=== PATIENT | male | born 1995 | race American Indian/Alaskan Native ===

== ENCOUNTER 2023-09-09 12:53 | Outpatient (AMB) | payer SELFPAY ==
--- NOTE | 2023-09-09 13:06 | AM.OFFWIN_ITS ---
Intake Vital Signs 3 09/09/23 13:09 Height 5 ft 10 in Weight 187 lb BMI 26.8 BP 100/62 Blood Pressure Location Lt brachial Position Sitting Pulse 99 Pulse Source Pulse Oximeter Temp 98.3 F Temp Source Oral Pulse Oximetry (%) 97 Oxygen Delivery Method Room Air Intake Visit Reasons: EP chest pain ER ppwrk in hand Intake Note: Pt is here today to get a second opinion for his chest pain [place] [facility] [place] No Known Allergies Allergy (Verified 09/09/23 13:11) Medication List - Last Reconciled 09/09/23 by Dayanna Yi, SCHOOL PSYCHOMETRIST-BC cyclobenzaprine 10 mg PO BID naproxen 500 mg PO BID HPI HPI Comments 2 History of Present Illness0 Details 27-year-old male here today for complain ts of left chest wall pain, numbness and tingling of his left arm. He was evaluated by [facility] Emergency room about 1 week ago for similar symptoms. He reports the workup was negative and he was discharged home with naproxen and cyclobenzaprine. This medication was helping some. However the symptoms continued. He did go to [facility] on and he was admitted and discharged home on Monday. I have had some of the paperwork from the [facility] admission printed for me to review. Labs, EKG, chest x-ray within normal limits. The no indicate that a CT scan of the brain was done. I do not have the results but the patient reports this was normal. He was discharged home with an order for an MRI of the brain and neck. He has not scheduled this yet. He will call on Monday. When I asked him about more details, he reports that prior to the onset he did feel a pop in his left chest wall. He was smoking marijuana at that time and wondered if the pop was real or just part of a trip. However the next day he had pain in the left chest wall. He admits that with use of his arm and chest the pain is worse, the left chest become swollen, and occasionally has pins and needle sensation in the left arm. Does not lose function or strength in his left arm. States that when he wakes up 1st thing in the morning and overnight while he is sleeping he has no pain and no tingling. It is only after he goes about his day and uses his arm and chest. He denies fever, chills, hemoptysis. His extensive workup has ruled out any life-threatening causes. Review of Systems Const All systems reviewed & are unremarkable except as noted in HPI and below Physical Exam Vital Signs: Last Vital Signs Temp 98.3 F 09/09/23 13:09 Pulse 99 09/09/23 13:09 BP 100/62 09/09/23 13:09 Pulse Ox 97 09/09/23 13:09 Oxygen Delivery Method Room Air 09/09/23 13:09 BMI result Body Mass Index 26.8 Chest Other: Awake alert oriented, no acute distress Regular rate and rhythm Lung sounds clear to auscultation bilat Chest/axillae images: 2 1. Reproducible pain with palpation. No chest wall deformity. Overlying skin is intact and clear. The left arm is neurovascularly intact. Assessment & Plan Assessment & Plan (1) Hospital discharge follow-up: Code(s): Z09 - Encounter for follow-up examination after completed treatment for conditions other than malignant neoplasm (2) Strain of left pectoralis muscle: Code(s): S29.011A - Strain of muscle and tendon of front wall of thorax, initial encounter Qualifiers: Encounter type: initial encounter Qualified Code(s): S29.011A - Strain of muscle and tendon of front wall of thorax, initial encounter (3) Paresthesia of left arm: Code(s): R20.2 - Paresthesia of skin Plan: . Plan . This note is constructed using voice recognition software. While every effort has been made to ensure accuracy in ship construction teacher, still errors may have been included Sometimes, these errors may affect the content or meaning of the given sentence . Total time spent caring for the patient today was 60 minutes. This includes time spent before the visit reviewing the chart, time spent during the visit, and time spent after the visit on documentation Orders: Referrals 2 Orthopedics Referral S29.011A - Strain of muscle and tendon of front wall of thorax, initial encounter Medications: New 2 cyclobenzaprine 10 mg PO BID PRN 20 tabs 0RF muscle spasm naproxen 500 mg PO BID PRN 30 tabs 0RF pain Patient Instructions: Explained to him today that the cause of his pain could be related to some sort of injury to the left pectoral muscle. I have placed a referral to orthopedics for further evaluation and treatment. I have advised him to get the MRI of the brain and neck done as ordered by [facility]. He should continue to take naproxen and Flexeril. I have refilled both of these for him. He also needs to establish care with a primary care provider. I have sent a message to the [facility] group in [place] to see if they work with his insurance if they can schedule him an appointment. Was made aware that if [facility] in [place] does not accept his insurance that he should contact his insurance company directly to see who they work with for primary care. Coding Level of Care Code Est Pt Level 5 (16530) Diagnoses Hospital discharge follow-up Z09 Strain of left pectoralis muscle, initial encounter S29.011A Encounter type: initial encounter Paresthesia of left arm R20.2
[2023-09-09 13:09] VITALS: BP 100/62; PULSE 99; TEMP 36.8; O2SAT 97; BMI 26.8
== END 2023-09-09 13:42 | disposition home or self-care (01) ==
PROVIDERS: Visit Provider Nurse Practitioner Family
DX: S29.011A Strain of muscle and tendon of front wall of thorax, initial encounter (principal); R20.2 Paresthesia of skin; Z09 Encounter for follow-up examination after completed treatment for conditions other than malignant neoplasm
CPT/HCPCS: 99051; 99215

== ENCOUNTER 2023-09-22 09:55 | Outpatient (AMB) | payer OTHER, SELFPAY ==
--- NOTE | 2023-09-22 10:18 | MHC.PC.OV ---
Vital Signs 09/22/23 10:25 Height 5 ft 8.5 in Weight 184 lb BMI 27.6 BP 118/78 Blood Pressure Location Lt brachial Position Sitting Respiration 14 Pulse 93 Pulse Source Pulse Oximeter Temp 98.4 F Temp Source Oral Pulse Oximetry (%) 99 Oxygen Delivery Method Room Air Intake Visit Reasons: Establish Care Intake Note: New patient visit. Chest pain, states its muscular. Light headed and off balance when walking. Allergies No Known Allergies Allergy (Verified 09/22/23 10:46) Medication List - Last Reconciled 09/22/23 [facility] No Known Home Meds Tobacco use date assessed: 09/22/23 Dental Screening Dental Screen Date: 09/22/23 Did you have a dental visit in the last 12 months?: No Did you have a dental problem in the last 6 months where you did not have access to dental care?: No Was dental information given to patient?: Yes HPI HPI Comments History of Present Illness Details Here today to [facility] care I did see him for 12/02/2023 at the walk-in clinic. Since last visit he cont to have the chest wall pain, on the left side Unfortunately he did also go to the emergency room 2 times since this visit. He reports the 1st time he was treated for dehydration and sent home and the 2nd time he went in after feeling like he was going to faint dropped to his knees at work. He reports that he was admitted during this time for 24 hours and was seen by a neurologist and a air defense specialist. He reports that an MRI was done. In the workup was negative. Reports that he is going to have an echocardiogram done next week. I do not have any of these records however they have been requested. He states all of his meds were discontinued as they wondered if the muscle relaxer the NSAIDs were contributing any part to his story. the pain in left chest wall, limited to a certain area. when he goes to do physical activity feels his heart racing. NSAID help this. He continues to say that all of the symptoms started after feeling a popping sensation in his left pectoral muscle after being physically active. Feels head mckinley when changing positions, feels he is hydrating well. At night, body is shaking on the inside, poor sleep. Admits some level of anxiety which is new for him. 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 1. Little interest or pleasure in doing things: not at all 2. Feeling down, depressed, or hopeless: not at all 3. Trouble falling or staying asleep, or sleeping too much: not at all 4. Feeling tired or having little energy: not at all 5. Poor appetite or overeating: not at all 6. Feeling bad about yourself - or that you are a failure or have let yourself or your family down: not at all 7. Trouble concentrating on things, such as reading the newspaper or watching television: not at all 8. Moving or speaking so slowly that other people could have noticed. Or the opposite - being so fidgety or restless that you have been moving around a lot more than usual: not at all 9. Thoughts that you would be better off or of hurting yourself in some way: not at all Total score: 0 Depression Screening Interpretation: Negative Depression Screening Done: Yes 93312 - PHQ-9 Billing: Yes Source: Developed by Drs. Carlos Baum, Nohemy Montalvo, Hal Savage and colleagues, with an educational alden from [employer]. Thrive Questionnaire Date Thrive assessed: 09/22/23 I am a: Patient What is your living situation today?: I have a steady place to live Within the past 12 months, did the food you bought not last and you didn't have the money to get more?: Never true Within the past 12 months, did you worry whether your food would run out before you got money to buy more?: Never true Do you have trouble paying for medicines?: No Do you have trouble getting transportation to medical appointments?: No Do you have trouble paying your heating and electricity bill?: No Do you have trouble taking care of your child, family member or friend?: No Do you have trouble with day-to-day activities such as bathing, preparing meals, shopping, managing finances, etc.?: No Are you currently unemployed and looking for a job?: No Are you interested in more education?: No Please select the resources that you would like help with: None Currently or been in a relationship where the following occur: no concerns reported and I choose not to answer this question THRIVE Score: 0 AUDIT C Alcohol Use Questionnaire (AUDIT-C) 1. How often do you have a drink containing alcohol?: 2-3 times a week 2. How many drinks containing alcohol do you have on a typical day when you are drinking?: 3 or 4 3. How often do you have six or more drinks on one occasion?: Never Total Score: 4 Score Reviewed/Action Taken: Yes SARAH-7 AMB Questionnaire SARAH-7 Date SARAH - 7 assessed: 09/22/23 Feeling nervous, anxious, or on edge: 0 = Not at all Not being able to stop or control worryin = Not at all Worrying too much about different things: 1 = Several days Trouble relaxin = Several days Being so restless that it is hard to sit still: 0 = Not at all Becoming easily annoyed or irritable: 0 = Not at all Feeling afraid as if something awful might happen: 1 = Several days Total SARAH-7 score (0-4 normal; 5-9 mild; 10-14 moderate; 15-21 severe): 3 Source: Developed by Drs. Carlos Baum, Nohemy Montalvo, Hal Savage and colleagues, with an educational alden from [employer]. SARAH-7 Assessment Billing SARAH-7 Assessment Tool: SARAH-7 Assessment 56367 Review of Systems Const All systems reviewed & are unremarkable except as noted in HPI and below Physical exam (Primary Care) Vital Signs: Last Vital Signs Temp 98.4 F 09/22/23 10:25 Pulse 93 09/22/23 10:25 Resp 14 09/22/23 10:25 BP 118/78 09/22/23 10:25 Pulse Ox 99 09/22/23 10:25 Oxygen Delivery Method Room Air 09/22/23 10:25 BMI result Body Mass Index 27.6 Tobacco/Smoking Status: Tobacco use Status Tobacco use date assessed 09/22/23 09/22/23 10:28 Patient Tobacco Use Status Never used Tobacco 09/22/23 10:28 e-Cigarette/Vaping Use Currently Using 09/22/23 10:28 PHQ-9: PHQ-9 Score PHQ-9: Total score 0 09/22/23 10:28 Depression Screening Interpretation: Negative Currently or been in a relationship where the following occur: no concerns reported and I choose not to answer this question Const Other: Awake alert oriented, no acute distress Regular rate and rhythm Lung sounds clear to auscultation bilat Chest/axillae images: 1. Reproducible pain with palpation. No chest wall deformity. Overlying skin is intact and clear. The left arm is neurovascularly intact. Assessment and Plan Assessment & Plan (1) Hospital discharge follow-up: Code(s): Z09 - Encounter for follow-up examination after completed treatment for conditions other than malignant neoplasm (2) Strain of left pectoralis muscle: Code(s): S29.011A - Strain of muscle and tendon of front wall of thorax, initial encounter Qualifiers: Encounter type: initial encounter Qualified Code(s): S29.011A - Strain of muscle and tendon of front wall of thorax, initial encounter Plan Ongoing symptomology of which extensive testing has been done at [facility] with life-threatening conditions ruled out. He has been seen by a air defense specialist as well as a neurologist. Be that as it may this certainly could be an anxiety response to what has been going on recently. The pain in his left pectoral muscle started after he felt a popping sensation when being physically active. I do think it would be prudent to send him to orthopedics for an evaluation. I will start him on Paxil 10 mg p.o. daily. Titrate to effect. P.r.n. hydroxyzine. Advised to use this. Advised against going to the emergency room for any further evaluations. I will review the documents from [facility] once available to me and bring him back for a close follow up in 2-3 weeks. This note is constructed using voice recognition software. While every effort has been made to ensure accuracy in outsole cementer machine, still errors may have been included Sometimes, these errors may affect the content or meaning of the given sentence . Total time spent caring for the patient today was 45 minutes. This includes time spent before the visit reviewing the chart, time spent during the visit, and time spent after the visit on documentation Orders: Referrals Orthopedics Referral S29.011A - Strain of muscle and tendon of front wall of thorax, initial encounter Medications: New paroxetine HCl 10 mg PO DAILY 30 tabs 1RF hydroxyzine HCl 50 mg PO BID PRN 60 tabs 0RF anxiety Patient Instructions: Return to office in 2-3 weeks to follow up, sooner as needed Coding Level of Care Code Est Pt Level 5 (90975) Diagnoses Hospital discharge follow-up Z09 Strain of left pectoralis muscle, initial encounter S29.011A Encounter type: initial encounter Additional Codes SARAH-7 Assessment Billing - SARAH-7 Assessment Tool: SARAH-7 Assessment 58123 ([id number])
[2023-09-22 10:25] VITALS: BP 118/78; PULSE 93; RESP 14; TEMP 36.9; O2SAT 99; BMI 27.6
== END 2023-09-22 11:06 | disposition home or self-care (01) ==
PROVIDERS: Visit Provider Nurse Practitioner Family
DX: S29.011A Strain of muscle and tendon of front wall of thorax, initial encounter (principal); Z09 Encounter for follow-up examination after completed treatment for conditions other than malignant neoplasm
CPT/HCPCS: 99215

== ENCOUNTER 2023-10-04 07:53 | Outpatient (AMB) | payer OTHER, SELFPAY ==
--- NOTE | 2023-10-04 07:55 | MHC.OFFVIS ---
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 The patient states that his symptoms have been getting worse over the last few months. He has failed 6 weeks of conservative treatment. 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 The patient states that most of the pain is along the anterior aspect of his shoulder. He does report weakness when lifting his left hand above shoulder height. He has done physical therapy exercises which aggravated his pain. He has also tried Tylenol and anti-inflammatory medicines which gave him minimal relief. 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) Cognitive needs: No Hearing needs: No Vision needs: No Physical Exam Vital Signs: BMI result Body Mass Index 28.0 Const Other: Well-nourished well-developed very friendly male awake alert and oriented x3 in no acute distress Extrem Other: Bilateral upper extremity examination shows good capillary refill, no skin lesions noted, normal sensation light touch Left shoulder examination shows full range of motion when compared to his right shoulder, 4+ out of 5 strength with supraspinatus testing, positive impingement sign, positive [place] test, mild tenderness over his acromioclavicular joint, no instability Results Reviewed Results Reviewed: X-rays of the patient's left shoulder show moderate acromioclavicular joint narrowing, a type 3 acromion, no acute bony abnormalities Assessment & Plan Assessment & Plan (1) Left shoulder pain: Code(s): M25.512 - Pain in left shoulder Category: Medical Plan Mr. Bolton presents with left shoulder pain and weakness due to impingement syndrome as well as possible rotator cuff tearing and possible labral tearing. Thus, I will send the patient for an MRI arthrogram of his left shoulder. I will see him back once the study is completed to discuss the findings and treatment options. Will continue with his activity modifications in the meantime. He will contact me prior to the MRI should his symptoms worsen in any way. I spent 20 minutes in reviewing the patient's records and imaging studies, seeing the patient and documenting in the medical record. Orders: Orders XR shoulder LT min 2V Today M25.512 - Pain in left shoulder MR shoulder LT wo con Today M25.512 - Pain in left shoulder FL arthrogram shoulder LT Today M25.512 - Pain in left shoulder Coding Level of Care Code New Pt Level 3 (07733) Diagnoses Left shoulder pain M25.512
[2023-10-04 07:56] VITALS: BMI 28.0
== END 2023-10-04 08:27 | disposition home or self-care (01) ==
PROVIDERS: Visit Provider Orthopaedic Surgery
DX: M25.512 Pain in left shoulder (principal)
CPT/HCPCS: 99203

== ENCOUNTER 2023-10-04 08:41 | Outpatient (REF) | payer OTHER, SELFPAY ==
--- NOTE | ~2023-10-04 | XR_ITS ---
EXAMINATION: XR SHOULDER, LEFT CLINICAL INFORMATION: Pain in left shoulder. COMPARISON: None available. TECHNIQUE: 2 views of the left shoulder. FINDINGS: Glenohumeral and acromioclavicular alignment is anatomic with normal joint space. At least 2 small 3-4 mm densities overlying the humeral head may represent bony sclerotic foci such as bone islands versus soft tissue calcifications. XR/XR shoulder LT min 2V IMPRESSION: At least 2 small 3-4 mm densities overlying the humeral head may represent bony sclerotic foci such as bone islands versus soft tissue calcifications.
== END 2023-10-04 08:42 | disposition home or self-care (01) ==
LOC: HO.HOSX 08:41
PROVIDERS: Visit Provider Orthopaedic Surgery
DX: M25.512 Pain in left shoulder (principal)
CPT/HCPCS: 73030

== ENCOUNTER 2023-10-18 08:28 | Outpatient (AMB) | payer OTHER, SELFPAY ==
--- NOTE | 2023-10-18 08:39 | A.OFFPC_ITS ---
Vital Signs 10/18/23 08:41 Height 5 ft 8 in Weight 185 lb BMI 28.1 BP 104/64 Blood Pressure Location Lt brachial Position Sitting Pulse 78 Pulse Source Auscultation Pulse Oximetry (%) 98 Oxygen Delivery Method Room Air Intake Visit Reasons: 2-3 weeks with me 30 min f/u chest pain Allergies No Known Allergies Allergy (Verified 10/18/23 08:45) Medication List - Last Reconciled 10/18/23 by JAN Modi No Known Home Meds Tobacco use date assessed: 09/22/23 Dental Screening Dental Screen Date: 09/22/23 HPI HPI Comments History of Present Illness Details Here today for fu: At previous visit: Ongoing symptomology of which extensive testing has been done at [facility] with life-threatening conditions ruled out. He has been seen by a pillowcase cutter as well as a neurologist. Be that as it may this certainly could be an anxiety response to what has been going on recently. The pain in his left pectoral muscle started after he felt a popping sensation when being physically active. I do think it would be prudent to send him to orthopedics for an evaluation. I will start him on Paxil 10 mg p.o. daily. Titrate to effect. P.r.n. hydroxyzine. Advised to use this. Advised against going to the emergency room for any further evaluations. I will review the documents from [facility] once available to me and bring him back for a close follow up in 2-3 weeks. Since last visit, had consult with [facility] Ortho. I was also able to review his [facility] Medical Records, images, labs. all WNL and reassuring. Ortho note indicates: Mr. Bolton presents with left shoulder pain and weakness due to impingement syndrome as well as possible rotator cuff tearing and possible labral tearing States today that: MRI scheduled 11/13/23 He worries about the right shoulder area as he is having some pain - wonders if overuse d/t left side being impaired. He has sent a portal message to [facility] ortho to inquire about this; in addition to request imaging of L pec as this is a source of some of his pain and did feel a pop in this area at the onset of this sx. Stopped taking paxil x 2 days and felt like he had a side effect so stopped. The Hydroxyzine caused a sense of feeling unbalanced and nausea so stopped but it did help w/ anxiety sx. His anxiety is much better now that he knows his heart is not the reason for his pain and that it is an Ortho cause. He has had no ED visits. No syncope or presyncope. He is managing with the pain for now. Offered and declined cortisone injection. Will get TDap today as unsure of last time he had one. 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 Carlos Baum, Nohemy Montalvo, Hal Savage and colleagues, with an educational alden from [employer]. Review of Systems Const All systems reviewed & are unremarkable except as noted in HPI and below Physical exam (Primary Care) Vital Signs: Last Vital Signs Pulse 78 10/18/23 08:41 BP 104/64 10/18/23 08:41 Pulse Ox 98 10/18/23 08:41 Oxygen Delivery Method Room Air 10/18/23 08:41 BMI result Body Mass Index 28.1 Tobacco/Smoking Status: Tobacco use Status Tobacco use date assessed 09/22/23 10/18/23 08:39 Patient Tobacco Use Status Never used Tobacco 10/18/23 08:39 e-Cigarette/Vaping Use Currently Using 10/18/23 08:39 Thrive Assessment: Date of Thrive Assessment Date Thrive assessed 09/22/23 10/18/23 08:39 Const Other: Awake alert oriented, no acute distress Regular rate and rhythm Lung sounds clear to auscultation bilat Chest/axillae images: Reproducible pain with palpation. No chest wall deformity. Overlying skin is intact and clear. The left arm is neurovascularly intact. Immunizations Boostrix Tdap 2.5 Lf unit-8 mcg-5 Lf/0.5 mL intramuscular syringe Performing Provider: JAN Modi Performing Location: [facility] Administered by: Charu Solitario CMA on 10/18/23 09:29 Dose Route Admin Location Dispensed Lot Number Expiration Date NDC Web Marketing Coordinator 0.5 mL IM Right Deltoid 0.5 mL [id number] 11/14/25 98663-451-81 [employer]LAXOSMITHK[employer] 0.5 mL IM Right Deltoid 0.5 mL [id number] 11/14/25 40228-804-07 [employer] VIS Given Date VIS Provided VIS Publication Date 10/18/23 Single Vaccine 20 Eligibility Eligibility Date Funding Source Not [facility] Eligible 10/18/23 Private Assessment and Plan Assessment & Plan (1) Left shoulder pain: Code(s): M25.512 - Pain in left shoulder Qualifiers: Chronicity: acute Qualified Code(s): M25.512 - Pain in left shoulder (2) Paresthesia of left arm: Code(s): R20.2 - Paresthesia of skin (3) SARAH (generalized anxiety disorder): Code(s): F41.1 - Generalized anxiety disorder Plan This note is constructed using voice recognition software. 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 Total time spent caring for the patient today was 45 minutes. This includes time spent before the visit reviewing the chart, time spent during the visit, and time spent after the visit on documentation Orders: Orders TDaP Immunization Today Z23 - Encounter for immunization Medications: New Boostrix Tdap (diphth,pertus(acell),tetanus) 0.5 mL IM ONCE 0.5 mL 0RF NS Z23 - Encounter for immunization Patient Instructions: Plan: MRI 11/13/23, left shoulder being managed by Ortho. Will likely need surgery. This is likely the cause for his pain. RTO for pre-op clearance, sooner as needed. STOP paxil and hydroxyzine as these caused side effects & your anxiety is improved knowing the cause of your pain is your shoulder FU with ortho about R shoulder Tdap admin today Reassured Cards work up was Normal. Coding Level of Care Code Est Pt Level 5 (71250) Diagnoses Acute pain of left shoulder M25.512 Chronicity: acute Paresthesia of left arm R20.2 SARAH (generalized anxiety disorder) F41.1
[2023-10-18 08:41] VITALS: BP 104/64; PULSE 78; O2SAT 98; BMI 28.1
== END 2023-10-18 09:00 | disposition home or self-care (01) ==
PROVIDERS: Visit Provider Nurse Practitioner Family
DX: M25.512 Pain in left shoulder (principal); R20.2 Paresthesia of skin; F41.1 Generalized anxiety disorder; Z23 Encounter for immunization
CPT/HCPCS: 90471; 90715; 99215

== ENCOUNTER 2023-11-13 12:47 | Outpatient (REF) | payer OTHER, SELFPAY ==
--- NOTE | ~2023-11-13 | MR_ITS ---
EXAMINATION: MR SHOULDER WITH CONTRAST, LEFT CLINICAL INFORMATION: Shoulder pain. Possible labral tear. COMPARISON: X-ray 10/04/2023 TECHNIQUE: MRI of the shoulder was performed following the intra-articular administration of a dilute gadolinium-containing solution (arthrogram) on a high-field scanner. FINDINGS: ROTATOR CUFF: Mild supraspinatus tendinosis. Mild articular surface fraying anteriorly. Infraspinatus, teres minor, subscapularis is intact. No muscle atrophy or fatty infiltration. BICEPS: Intact CORACOACROMIAL ARCH: The undersurface of the acromion is curved with no subacromial spur. Minimal acromioclavicular arthritis. LABRUM/CAPSULE: No definite labral tear is seen. GLENOHUMERAL JOINT/MARROW: No evidence of acute fracture. No aggressive marrow replacing lesion. 3 small low T1/T2 signal foci in the humeral head, likely bone islands. This correlates with the sclerotic foci seen on the x-ray. MR/MR shoulder LT w con IMPRESSION: 1. Mild supraspinatus tendinosis. Mild articular surface fraying anteriorly. 2. No definite labral tear is seen.
--- NOTE | ~2023-11-13 | FL_ITS ---
LEFT SHOULDER ARTHROGRAM FOR MRI INDICATIONS: Left shoulder pain. Intra-articular gadolinium injection is needed prior to MRI. PROCEDURE: Risks and benefits and possible complications were discussed with the patient and the consent form was signed. The patient was placed supine on the fluoroscopy table. The left shoulder was prepped and draped in normal sterile fashion. 1% buffered lidocaine was used for anesthesia. A 22 gauge spinal needle was used to access the shoulder joint. Intra-articular position of the needle within the shoulder joint was verified using 3 cc of Omnipaque 300. A total of 10 mL of gadolinium/saline (1:200) contrast mixture was then injected into the shoulder joint. The needle was then removed and a Band-Aid was applied to the injection site. The patient tolerated the procedure well and was sent to MRI. There were no immediate complications. FL/FL arthrogram shoulder LT IMPRESSION: Successful fluoroscopic guided intra-articular instillation of dilute gadolinium into the left shoulder joint. Patient will undergo subsequent left shoulder MRI. The procedure was performed by kevin Dukes PA-C, and directly supervised by Dr. Ann.
[2023-11-13] MEDS: gadobutroL 2 ML VIAL IVPUSH (14:04)
== END 2023-11-13 12:48 | disposition home or self-care (01) ==
LOC: HO.XRAY 12:47
PROVIDERS: PCP Nurse Practitioner Family; Visit Provider Orthopaedic Surgery
DX: M25.512 Pain in left shoulder (principal)
CPT/HCPCS: 23350; 73040; 73222; A9585

== ENCOUNTER → 2023-11-13 12:49 | Outpatient (BNV) | payer OTHER, SELFPAY | PROVIDERS: PCP Nurse Practitioner Family; Visit Provider Physician Assistant Surgical | DX: M25.512 Pain in left shoulder (principal) | CPT/HCPCS: 23350; 73040 ==

== ENCOUNTER 2023-11-30 14:40 | Outpatient (AMB) | payer OTHER, SELFPAY ==
--- NOTE | 2023-11-30 14:45 | MHC.OFFVIS ---
Vital Signs 11/30/23 14:46 Height 5 ft 8 in Weight 189 lb BMI 28.7 Handedness Right Intake Visit Reasons: OV-Left shoulder MRI review Intake Note: Paul is a 27 year old right hand dominant male who presents with complaints of progressively worsening left shoulder pain. He describes his pain as sharp and severe in nature. Most of the pain is along the lateral and superior aspects of his shoulder. He denies any weakness. Has taken Tylenol and anti-inflammatory medicines which gave him minimal relief. He has done physical therapy exercises which aggravated his pain. 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) Cognitive needs: No Hearing needs: No Vision needs: No Physical Exam Vital Signs: BMI result Body Mass Index 28.7 Const Other: Well-nourished well-developed very friendly male awake alert and oriented x3 in no acute distress Extrem Other: Bilateral upper extremity examination shows good capillary refill, no skin lesions noted, normal sensation light touch Left shoulder examination shows full range of motion when compared to his right shoulder, 5/5 strength with supraspinatus testing, positive impingement signs, tenderness over his acromioclavicular joint, no instability Results Reviewed Results Reviewed: MRI of the patient's left shoulder show severe acromioclavicular joint narrowing, a type 3 acromion, signal change within the supraspinatus tendon due to rotator cuff tendinosis versus partial-thickness tearing Assessment & Plan Assessment & Plan (1) Impingement syndrome of left shoulder: Code(s): M75.42 - Impingement syndrome of left shoulder Category: Medical Plan Mr. Bolton presents with left shoulder pain due to impingement syndrome and acromioclavicular joint arthritis. I had a lengthy discussion with the patient regarding the treatment options. At this point he appears to be failing continued non operative treatments. The risks and benefits of left shoulder arthroscopic surgery were discussed at length with the patient. The patient is thinking about undergoing surgery later this year. He will contact my office to pick a surgery date when he chooses to do so. Surgery will involve left shoulder diagnostic arthroscopy with distal clavicle excision and acromioplasty. He will continue with his activity modifications in the meantime. Feel free to call me at any time should questions regarding his orthopedic management arise. I spent 21 minutes in reviewing the patient's records and imaging studies, seeing the patient and documenting in the medical record. Coding Level of Care Code Est Pt Level 3 (06805) Diagnoses Impingement syndrome of left shoulder M75.42
[2023-11-30 14:46] VITALS: BMI 28.7
== END 2023-11-30 15:15 | disposition home or self-care (01) ==
PROVIDERS: PCP Nurse Practitioner Family; Visit Provider Orthopaedic Surgery
DX: M75.42 Impingement syndrome of left shoulder (principal)
CPT/HCPCS: 99213

== ENCOUNTER → 2023-11-30 14:40 | Outpatient (BNVA) | payer OTHER, SELFPAY | PROVIDERS: PCP Nurse Practitioner Family; Visit Provider Orthopaedic Surgery ==

== ENCOUNTER 2024-01-10 10:52 | Outpatient (AMB) | payer OTHER, SELFPAY ==
[2024-01-10 10:54] VITALS: BMI 28.7
--- NOTE | 2024-01-10 10:54 | MHC.OFFVIS ---
Vital Signs 01/10/24 10:54 Height 5 ft 8 in Weight 189 lb BMI 28.7 Intake Visit Reasons: Left shoulder pain Intake Note: Paul is a 27 year old Right hand dominant male who presents with left progressively worsening left shoulder pain. The patient states that his symptoms have been getting worse over the last few months. He has failed 6 weeks of conservative treatment. 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 The patient states that most of the pain is along the anterior aspect of his shoulder. He does report weakness when lifting his left hand above shoulder height. He has done physical therapy exercises which aggravated his pain. He has also tried Tylenol and anti-inflammatory medicines which gave him minimal relief. 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) Cognitive needs: No Hearing needs: No Vision needs: No Physical Exam Vital Signs: BMI result Body Mass Index 28.7 Const Other: Well-nourished well-developed very friendly male awake alert and oriented x3 in no acute distress Extrem Other: Bilateral upper extremity examination shows good capillary refill, no skin lesions noted, normal sensation light touch Left shoulder examination shows slightly decreased range of motion when compared to his right shoulder, 4+ out of 5 strength with supraspinatus testing, positive impingement signs, tenderness over his acromioclavicular joint, no instability Results Reviewed Results Reviewed: MRI of the patient's left shoulder show severe acromioclavicular joint narrowing, a type 3 acromion, signal change within the supraspinatus tendon most likely due to rotator cuff tendinosis Assessment & Plan Assessment & Plan (1) Left shoulder pain: Code(s): M25.512 - Pain in left shoulder Category: Medical Qualifiers: Chronicity: acute Qualified Code(s): M25.512 - Pain in left shoulder Plan Mr. Bolton presents with progressively worsening left shoulder pain due to impingement syndrome and acromioclavicular joint arthritis. I had a lengthy discussion with the patient regarding the treatment options. At this point he has failed continued non operative treatments. The risks and benefits of left shoulder surgery were discussed at length with the patient. The patient wishes to proceed with surgery. Surgery will most likely involve left shoulder diagnostic arthroscopy with arthroscopic distal clavicle excision and arthroscopic acromioplasty. The patient was given a prescription for oxycodone at his preoperative appointment. Will follow-up as instructed. Feel free to call me at any time should questions regarding his orthopedic management arise. I spent 20 minutes in reviewing the patient's records and imaging studies, seeing the patient and documenting in the medical record. Medications: New oxycodone Partial Fill upon patient request. Take 1-2 tabs every 4 hours as needed for pain following your left shoulder surgery 10 mg (2 x 5 mg) PO Q4H 1 week PRN 40 tabs 0RF pain Coding Level of Care Code Est Pt Level 3 (65220) Diagnoses Acute pain of left shoulder M25.512 Chronicity: acute
== END 2024-01-10 11:11 | disposition home or self-care (01) ==
PROVIDERS: PCP Nurse Practitioner Family; Visit Provider Orthopaedic Surgery
DX: M75.42 Impingement syndrome of left shoulder (principal); M19.012 Primary osteoarthritis, left shoulder
CPT/HCPCS: 99213

== ENCOUNTER → 2024-01-10 10:52 | Outpatient (BNVA) | payer OTHER, SELFPAY | PROVIDERS: PCP Nurse Practitioner Family; Visit Provider Orthopaedic Surgery ==

== ENCOUNTER 2024-01-12 08:26 | Day surgery (SDC) | payer OTHER, SELFPAY ==
[2024-01-10 09:30] VITALS: BMI 28.7
--- NOTE | 2024-01-10 13:22 | P.CONAN_ITS ---
Documented by User: Anita Park NP 01/10/24 13:22 HPI - Anesthesia Eval Consult details Narrative: 28yo M for Left Shoulder Arthroscopy distal clavicle excision and acromioplasty PMFSH Active Problems Active Problems: All Active Problems Impingement syndrome of left shoulder (Acute) SARAH (generalized anxiety disorder) (Acute) Left shoulder pain (Acute) Hospital discharge follow-up (Acute) Paresthesia of left arm (Acute) Strain of left pectoralis muscle (Acute) Social History Social History Housing: House Patient Tobacco Use Status: Never used Tobacco e-Cigarette/Vaping Use: Currently Using Second Hand Smoke Exposure: No Advance Directives: No Advance Directives Information Provided: Yes service: No Current occupational status: employed Current occupation: [employer] , 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) Cognitive needs: No Hearing needs: No Vision needs: No Meds Allergies Allergy/AdvReac Type Severity Reaction Status Date / Time No Known Allergies Allergy Verified 01/10/24 10:54 Active Medications: Current Medications Cefazolin Sodium/Dextrose (Ancef) 2 gm in 50 mls @ 100 mls/hr IV PREOP ONE Stop: 01/12/24 06:16 Exam Height,Weight and Vital Signs: Height 5 ft 8 in Weight 85.729 kg Assessment and Plan Assessment Anesthesia Assessment: Chart Reviewed Documented by User: Linda Allen MD 01/12/24 09:59 PMFSH Family History Family history of problems with anesthesia: No Surgical History History of Problems with Anesthesia: No Social History Social History Housing: House Patient Tobacco Use Status: Never used Tobacco e-Cigarette/Vaping Use: Currently Using Second Hand Smoke Exposure: No Advance Directives: No Advance Directives Information Provided: Yes service: No Current occupational status: employed Current occupation: [employer] , 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 Discussed (e cig, vapes) Final Anesthetic Review Family History of Problems with Anesthesia: No History of Problems with Anesthesia: No NPO: Yes ASA Class: II Final Preanesthetic Review: No Changes in Pt Med Stat, Meds/Allgs Chart Reviewed, Consent Obtained/Reviewed and Anes Risks/Benef Reviewed Patient Risk: Low Procedure Risk: Intermediate Anesthetic Plan Anesthetic Plan: GA, Regional Block and Agree w/ Assess. and Plan Disposition: Standard PACU
[2024-01-12] VITALS (8 sets, daily range): BP systolic 109–132; BP diastolic 63–78; PULSE 78–90; RESP 12–20; TEMP 36.1–36.7; O2SAT 94–97; BMI 29.5
[2024-01-12] MEDS: Lactated Ringers 1,000 ML 100 ML IVCONT (10:31)
--- NOTE | 2024-01-12 14:38 | P.BOP_ITS ---
Brief Operative Note Date of Service: 01/12/24 Pre-op diagnosis: Left shoulder impingement syndrome, left shoulder acromioclavicular joint arthritis Post-op diagnosis: other (Same as preoperative diagnoses as well as left shoulder adhesive capsulitis) Procedure: Left shoulder diagnostic arthroscopy with left shoulder arthroscopic distal clavicle excision, left shoulder arthroscopic acromioplasty, left shoulder arthroscopic anterior capsular release, left shoulder manipulation under anesthesia Implants: none Surgeon: Tomi Narayanan MD Anesthesia: GETA and regional Was an Mechanical Equipment Sales Engineer used for this Procedure?: No Estimated blood loss (mL): 15 Pathology: none sent Condition: stable Disposition: PACU
--- NOTE | 2024-01-12 14:39 | W.PM.OPN ---
Operative Note Operative Note Date of Service: 01/12/24 Narrative: After the patient was identified as Paul Bolton and his left shoulder was initialed by myself the patient was brought to the holding area where a left shoulder interscalene regional block was performed by the anesthesiologist in routine fashion. The patient was then brought to the operating room where general anesthesia was induced by the anesthesiologist in routine fashion. The patient was given 2 g of IV Ancef preoperatively for infection prophylaxis. Examination under anesthesia of the patient's left shoulder showed decreased range of motion when compared to the right shoulder. The patient's left shoulder had forward flexion to 140 degrees compared to 170 degrees, external rotation to 40 degrees compared to 60 degrees, and internal rotation to 50 degrees compared to 60 degrees. The patient was gently positioned in the beach chair position with all bony prominences well padded. The patient's left shoulder region and upper extremity were prepped and draped in sterile fashion. A formal time-out was completed. A #11 scalpel blade was used to make a posterior portal 2 cm inferior and 1 cm medial to the posterolateral corner of the acromion. Blunt trocar technique was used to enter the glenohumeral joint in routine fashion. An anterior portal was made just lateral to the coracoid process after proper positioning was confirmed using a spinal needle. Diagnostic arthroscopy showed minimal degenerative changes of the glenoid and humeral head articular surfaces. There was no evidence of rotator cuff tearing. There was no evidence of injury to the biceps tendon or its insertion onto the glenoid. There was inflammation of the anterior joint capsule consistent with adhesive capsulitis. The ArthroCare Wand was then used to perform an anterior capsular release between the inferior border of the biceps tendon and the superior border of the subscapularis tendon. The arthroscope was then placed from the posterior portal into the subacromial space. A lateral portal was made 2 fingerbreadths lateral to the anterior lateral corner of the acromion. The ArthroCare Wand was used to ablate soft tissues along the undersurface of the acromion as well as to excise the coracoacromial ligament. There was a sharp spur along the undersurface of the acromion which was removed using the hooded bur. The arthroscope was then placed into the lateral portal and the acromioplasty was completed with the bur in the posterior portal using the posterior aspect of the acromion as a cutting block. The ArthroCare Wand was then brought in through the anterior portal and was used to ablate soft tissues along the acromioclavicular joint and distal clavicle. The posterior and superior ligamentous structures were left intact. A distal clavicle excision of 8 mm was performed using the hooded bur. Any remaining bursal tissue was removed using the arthroscopic shaver. The subacromial space was irrigated and then drained. All arthroscopic instruments were removed. A gentle manipulation under anesthesia was then performed. Full passive range of motion was easily attained. The 3 portals were closed with 3-0 nylon interrupted suture. The subacromial space was injected with Marcaine. Dry sterile dressing was placed over all incisions. The patient's left upper extremity was placed into a sling. The patient was awoken and extubated in the operating room. The patient was transferred to the recovery room in stable condition.
[2024-01-12] MEDS: cefTRIAXone sodium 1 GM in 0.9 % Sodium Chloride 50 ML IV (15:18)
== END 2024-01-12 16:11 | disposition home or self-care (01) ==
PROVIDERS: PCP Nurse Practitioner Family; Visit Provider Orthopaedic Surgery
PROC: (CPT 29805; principal; 2024-01-12 12:00)
DX: M75.42 Impingement syndrome of left shoulder (principal); M75.02 Adhesive capsulitis of left shoulder; M19.012 Primary osteoarthritis, left shoulder; F17.290 Nicotine dependence, other tobacco product, uncomplicated
CPT/HCPCS: 29824; 29825; 29826; J0131; J0171; J0665; J0690; J0696; J1100; J2250; J2405; J2704; J2795; J3010

== ENCOUNTER → 2024-01-12 08:26 | Outpatient (BNV) | payer OTHER, SELFPAY | PROVIDERS: PCP Nurse Practitioner Family; Visit Provider Orthopaedic Surgery | DX: M75.42 Impingement syndrome of left shoulder (principal); M19.012 Primary osteoarthritis, left shoulder | CPT/HCPCS: 29824; 29826 ==

== ENCOUNTER 2024-01-25 08:23 | Outpatient (AMB) | payer OTHER, SELFPAY ==
--- NOTE | 2024-01-25 08:24 | MHC.OFFVIS ---
Intake Visit Reasons: PO-Lt Shld 01/12/24 Intake Note: Paul is a 28 year old male who presents to the office today for a post op left shoulder 01/12/24. Pt states he is overall feeling well. He states if he moves his arm a certain way it its painful but overall the pain has been getting better. Pt states he has also been working on ROM exercises. Sutures removed in office today. He is no longer taking narcotics for his pain. 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 Bolton is doing well after undergoing left shoulder arthroscopic surgery on 01/12/2024. His sutures were removed and Steri-Strips placed over his incisions. He will gradually progress to activities as tolerated. He does not wish to go to formal physical therapy. He will contact me prior to his follow-up appointment in 4-6 weeks should any questions or concerns arise. Feel free to call me at any time should questions regarding his orthopedic management arise. Coding Level of Care Code Global (48579) Diagnoses Acute pain of left shoulder M25.512 Chronicity: acute
== END 2024-01-25 08:54 | disposition home or self-care (01) ==
PROVIDERS: PCP Nurse Practitioner Family; Visit Provider Orthopaedic Surgery
DX: M25.512 Pain in left shoulder (principal)
CPT/HCPCS: 99024

== ENCOUNTER → 2024-01-25 08:23 | Outpatient (BNVA) | payer OTHER, SELFPAY | PROVIDERS: PCP Nurse Practitioner Family; Visit Provider Orthopaedic Surgery ==

== ENCOUNTER 2024-02-09 11:28 | Outpatient (AMB) | payer OTHER, SELFPAY ==
--- NOTE | 2024-02-09 11:29 | A.OFFPC_ITS ---
Vital Signs 02/09/24 11:32 Height 5 ft 10 in Weight 191 lb 6 oz BMI 27.5 BP 118/70 Blood Pressure Location Lt brachial Position Sitting Respiration 14 Pulse 78 Pulse Source Pulse Oximeter Temp 97.8 F Temp Source Oral Pulse Oximetry (%) 98 Oxygen Delivery Method Room Air Intake Visit Reasons: random pain going down his legs Intake Note: follow up and patient still feeling tingling on his left leg Allergies No Known Allergies Allergy (Verified 02/09/24 11:32) Medication List - Last Reconciled 02/09/24 [facility] No Known Home Meds Tobacco use date assessed: 09/22/23 Dental Screening Dental Screen Date: 09/22/23 HPI HPI Comments History of Present Illness Details 28-year-old male s/p L shoulder 4 Here today c/o Left leg falling asleep and tingling on the left side of his neck. He reports that the symptoms in his left leg has been present for several months. He describes the sensation as when you are body part is waking up after falling asleep, tingling like. The symptoms are intermittent and occur throughout the day randomly. In regards to the left side of his neck, he reports that this started after his last surgery. It starts at the base of his cervical spine and radiates up the side behind his ear and then up towards his yarsanism. Reports that it feels like there is something wrong with his nerves. 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 His head always feels heavy. He has had extensive workup in the past to include a brain MRI, multiple cardiac workups all which were nonrevealing and done to evaluate other phlebotomy complaints. He denies any injury, fever, chills, loss of function. Exam Awake alert oriented, no acute distress PERRLA, EOMI, no photophobia Neck has full range of motion in all directions,left lateral flextion causes a pulsing muscle sensation on the left side of his neck. No nucchal rigidity. Not able to reproduce his sx. No c spine tenderness. No paraspinal tenderness. LLE normal tone. C/o tingling when zainab his calf muscle. No edema. CMS WNL No mastoid pain No temporal artery pain WHITE x 4,neurovasc intact, normal reflexes, tone, strength. Plan: Discussed the findings and plan with him today. Offered to start with nerve conduction study of his left upper and lower extremity. However unsure if the left upper extremity NCV we will give us any clinically significant findings, as the pain he describes radiates up into his neck and not into his left arm. Discuss referral to Neurology for evaluation and treatment versus MRI of the C- spine and lumbar spine and referral to the relationship specialist if there are any positive findings. Made aware that the insurance may or may not approve these imaging orders. The patient wishes to proceed. States that he is willing to pay [id number] for imaging if need be. I have advised for him to talk to the staff about this. Send me a portal message once imaging is scheduled. If the imaging can not be done, refer to neurology. In the meantime he wonders if he can see chiropractic medicine as he feels like overall his back and muscles are tight and he would benefit from this. I have placed a referral to [facility] and [facility] This note is constructed using voice recognition software. While every effort has been made to ensure accuracy in business performance manager, still errors may have been included Sometimes, these errors may affect the content or meaning of the given sentence . Total time spent caring for the patient today was 30 minutes. 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 Carlos Baum, Nohemy Montalvo, Hal Savage and colleagues, with an educational alden from [employer]. Physical exam (Primary Care) Vital Signs: Last Vital Signs Temp 97.8 F 02/09/24 11:32 Pulse 78 02/09/24 11:32 Resp 14 02/09/24 11:32 BP 118/70 02/09/24 11:32 Pulse Ox 98 02/09/24 11:32 Oxygen Delivery Method Room Air 02/09/24 11:32 BMI result Body Mass Index 27.5 Tobacco/Smoking Status: Tobacco use Status Tobacco use date assessed 09/22/23 02/09/24 11:34 Patient Tobacco Use Status Never used Tobacco 02/09/24 11:34 e-Cigarette/Vaping Use Currently Using 02/09/24 11:34 Thrive Assessment: Date of Thrive Assessment Date Thrive assessed 09/22/23 02/09/24 11:34 Assessment and Plan Assessment & Plan (1) Left leg paresthesias: Code(s): R20.2 - Paresthesia of skin (2) Complaint of paresthesia: Code(s): R20.2 - Paresthesia of skin (3) Back pain: Code(s): M54.9 - Dorsalgia, unspecified Orders: Orders MR cervical spine wo con Today R20.2 - Paresthesia of skin MR lumbar spine wo con Today R20.2 - Paresthesia of skin Referrals Chiropractic Referral M54.9 - Dorsalgia, unspecified Patient Instructions: [facility] Abraham Wiley [address] [place] [phone] Coding Level of Care Code Est Pt Level 4 (81837) Complex EM visit Add On G2211 Diagnoses Left leg paresthesias R20.2 Complaint of paresthesia R20.2 Back pain M54.9
[2024-02-09 11:32] VITALS: BP 118/70; PULSE 78; RESP 14; TEMP 36.6; O2SAT 98; BMI 27.5
== END 2024-02-09 12:07 | disposition home or self-care (01) ==
PROVIDERS: PCP Nurse Practitioner Family; Visit Provider Nurse Practitioner Family
DX: R20.2 Paresthesia of skin (principal); M54.9 Dorsalgia, unspecified

== ENCOUNTER → 2024-02-09 11:28 | Outpatient (BNVA) | payer OTHER, SELFPAY | PROVIDERS: PCP Nurse Practitioner Family; Visit Provider Nurse Practitioner Family | DX: R20.2 Paresthesia of skin (principal); M54.9 Dorsalgia, unspecified ==

== ENCOUNTER 2024-02-29 08:11 | Outpatient (AMB) | payer OTHER, SELFPAY ==
--- NOTE | 2024-02-29 08:17 | MHC.OFFVIS ---
Intake Visit Reasons: PO- 5 wks Lt Shld 01/12/24 Intake Note: Paul is a 28 year old male who presents with complaints of mild to moderate discomfort in his left shoulder after undergoing left shoulder arthroscopic surgery on 01/12/2024. He denies any fevers or chills. He is no longer taking narcotics for his discomfort. He continues with his home stretching program. 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 He will continue with his home stretching program. The do's and don'ts of lifting were discussed at length with the patient. He will contact me prior to his follow-up appointment in 2 months should any questions or concerns arise. Feel free to call me at any time should questions regarding his orthopedic management arise. Coding Level of Care Code Global (64143) Diagnoses Acute pain of left shoulder M25.512 Chronicity: acute
== END 2024-02-29 08:41 | disposition home or self-care (01) ==
PROVIDERS: PCP Nurse Practitioner Family; Visit Provider Orthopaedic Surgery
DX: M25.512 Pain in left shoulder (principal)
CPT/HCPCS: 99024

== ENCOUNTER → 2024-02-29 17:41 | Outpatient (BNV) | payer OTHER, SELFPAY | PROVIDERS: PCP Nurse Practitioner Family; Visit Provider Radiology Diagnostic Radiology | DX: M79.605 Pain in left leg (principal); M54.2 Cervicalgia | CPT/HCPCS: 72141; 72148 ==

== ENCOUNTER 2024-02-29 17:50 | Outpatient (REF) | payer OTHER, SELFPAY ==
--- NOTE | ~2024-02-29 | MR_ITS ---
EXAMINATION: MR LUMBAR SPINE WITHOUT CONTRAST CLINICAL INFORMATION: Left lower extremity numbness. COMPARISON: None available. TECHNIQUE: MRI of the lumbar spine was obtained using routine sequences without contrast. FINDINGS: Last rib-bearing vertebra labeled T12. No bone marrow STIR signal abnormality. The alignment is normal. The conus medullaris ends at superior endplate of L1 with normal signal. T12-L1: No disc herniation. No compression upon neural elements. L1-2: No disc herniation. No neural foramina stenosis. L2-3: Broad-based disc bulging. Facet joint hypertrophy. No compression upon neural elements. L3-4: Broad-based bulging. Facet joint hypertrophy. Reduced AP diameter of the thecal sac. Bilateral neuroforamina narrowing. No compression upon neural elements. L4-5: Broad-based disc bulging abutting the L5 nerve roots on the lateral recesses. Bilateral facet joint hypertrophy. Bilateral neuroforamina narrowing. L5-S1: Broad-based disc bulging. Facet joint hypertrophy. Bilateral neuroforamina narrowing likely encroaching the exiting nerve roots. No prevertebral compartment hematoma, mass or fluid collection. MR/MR lumbar spine wo con IMPRESSION: Multilevel lumbar spondylosis, L2-3 to L5-S1 more conspicuous at L4-5 and L5-S1 levels likely encroaching the exiting nerve roots. Electronically signed by: Lex Guerrero MD 03/20/2024 01:56 PM [facility]
--- NOTE | ~2024-02-29 | MR_ITS ---
EXAMINATION: MR CERVICAL SPINE WITHOUT CONTRAST CLINICAL INFORMATION: Neck pain. Into the left side. COMPARISON: None available. TECHNIQUE: MRI of the cervical spine was obtained using routine sequences without contrast. FINDINGS: Craniocervical junction is intact. No bone marrow STIR signal abnormality. The alignment is normal. The cervical spinal cord signal is normal. C2-3: No disc herniation. No neuroforamina stenosis. C3-4: No disc herniation. No neuroforamina stenosis. C4-5: No disc herniation. No neuroforamina stenosis. C5-6: No disc herniation. No neuroforamina stenosis. C6-7: No disc herniation. No neuroforamina stenosis. C7-T1: No disc herniation. No neuroforamina stenosis. No prevertebral compartment hematoma, mass or fluid collection. Flow-void signal within the main vessels is normal. Codominant vertebral arteries. Nonspecific prominent cervical lymph nodes, bilaterally. MR/MR cervical spine wo con IMPRESSION: No acute fracture or listhesis. No cord compression, edema and or myelopathy. Electronically signed by: Lex Guerrero MD 03/20/2024 01:52 PM [facility]
== END 2024-02-29 17:51 | disposition home or self-care (01) ==
LOC: HO.MRI 17:50
PROVIDERS: PCP Nurse Practitioner Family; Visit Provider Nurse Practitioner Family
DX: R20.2 Paresthesia of skin (principal)
CPT/HCPCS: 72141; 72148

== ENCOUNTER 2024-03-13 08:36 | Outpatient (AMB) | payer OTHER, SELFPAY ==
--- NOTE | 2024-03-13 08:41 | A.OFFPC_ITS ---
Vital Signs 03/13/24 08:44 Height 5 ft 10 in Weight 193 lb 8 oz BMI 27.8 BP 120/70 Blood Pressure Location Lt brachial Position Sitting Respiration 13 Pulse 82 Pulse Source Pulse Oximeter Pulse Oximetry (%) 96 Oxygen Delivery Method Room Air Intake Visit Reasons: Chest pain, should , head and elbow pain Intake Note: Patient complaining of chest pain and tingle on left side of the head x 6 months Allergies No Known Allergies Allergy (Verified 03/13/24 08:50) Medication List - Last Reconciled 03/13/24 by [facility] No Known Home Meds Tobacco use date assessed: 09/22/23 Dental Screening Dental Screen Date: 09/22/23 HPI HPI Comments History of Present Illness Details 28-year-old male s/p L shoulder 4 here today w/ c/o Consistent pain in left side of chest; the shoulder pain is better. The chest muscle area feels tight. c/o headache or weird feeling in head, makes him feel lightheaded like he has to sit down. Cont w/ intermittent tingling on L side of neck. When sitting for 3-4 minutes after standing feels left leg falling asleep. When pressing on l pec has pain. Applied icy/hot patch with + short lived relief. Has also tried excedrin. Denies new medication, surgery, trauma. Also wonders if his tonsils are ok. Has times where he feels like he has a hard time breathing and swallowing. This started about 1 month ago.Intermittent. Wonders if related to anxiety. He is not choking on foods. A cough that is random and does not seem to be associated. No painful swallowing. Able to manage secretions. Stoping using marijuana as he felt his sx were worst after using. At previous visit MRI C and L spine ordered to eval: c/o Left leg falling asleep and tingling on the left side of his neck. He reports that the symptoms in his left leg has been present for several months. He describes the sensation as when you are body part is waking up after falling asleep, tingling like. The symptoms are intermittent and occur throughout the day randomly. In regards to the left side of his neck, he reports that this started after his last surgery. It starts at the base of his cervical spine and radiates up the side behind his ear and then up towards his amish. Reports that it feels like there is something wrong with his nerves. 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 His head always feels heavy. He has had extensive workup in the past to include a brain MRI, multiple cardiac workups all which were nonrevealing and done to evaluate other phlebotomy complaints. He denies any injury, fever, chills, loss of function. Exam Awake alert oriented, no acute distress PERRLA, EOMI, no photophobia Neck has full range of motion in all directions Tonsils grade 2, no erythema or exudate, uvula mideline, managing secretions, no cervical adenopathy RRR LS CTAB Pain w/ palpation over L pec muscle, proximal to the shoulder and clavicle in one area. LUE FROM. Breast/nipple exam grossly normal WHITE x 4,neurovasc intact, normal reflexes, tone, strength. Plan US of chest to eval L pec Monitor tonsils/airway if any changes then will need to eval. Likely related to anxiety. MRI C spine and L spine 02/29/24 Report NA Call Rad to get MRI read of L spine and C spine imaging. Once US imaging is back, will f/u with patient. This note is constructed using voice recognition software. While every effort has been made to ensure accuracy in spring tester, still errors may have been included Sometimes, these errors may affect the content or meaning of the given sentence . Total time spent caring for the patient today was 30 minutes. 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 1. Little interest or pleasure in doing things: several days 2. Feeling down, depressed, or hopeless: not at all 3. Trouble falling or staying asleep, or sleeping too much: not at all 4. Feeling tired or having little energy: several days 5. Poor appetite or overeating: several days 6. Feeling bad about yourself - or that you are a failure or have let yourself or your family down: not at all 7. Trouble concentrating on things, such as reading the newspaper or watching television: not at all 8. Moving or speaking so slowly that other people could have noticed. Or the opposite - being so fidgety or restless that you have been moving around a lot more than usual: not at all 9. Thoughts that you would be better off or of hurting yourself in some way: not at all Total score: 3 Depression Screening Done: Yes 46038 - PHQ-9 Billing: Yes Source: Developed by Drs. Carlos Baum, Nohemy Montalvo, Hal Savage and colleagues, with an educational alden from [employer]. Thrive Questionnaire Date Thrive assessed: 03/13/24 I am a: Patient What is your living situation today?: I have a steady place to live Within the past 12 months, did the food you bought not last and you didn't have the money to get more?: Never true Within the past 12 months, did you worry whether your food would run out before you got money to buy more?: Never true Do you have trouble paying for medicines?: No Do you have trouble getting transportation to medical appointments?: No Do you have trouble paying your heating and electricity bill?: No Do you have trouble taking care of your child, family member or friend?: No Do you have trouble with day-to-day activities such as bathing, preparing meals, shopping, managing finances, etc.?: No Are you currently unemployed and looking for a job?: No Are you interested in more education?: No Please select the resources that you would like help with: None Currently or been in a relationship where the following occur: No concerns reported THRIVE Score: 0 AUDIT C Alcohol Use Questionnaire (AUDIT-C) 1. How often do you have a drink containing alcohol?: 2-4 times a month 2. How many drinks containing alcohol do you have on a typical day when you are drinking?: 1 or 2 3. How often do you have six or more drinks on one occasion?: Never Total Score: 2 SARAH-7 AMB Questionnaire SARAH-7 Date SARAH - 7 assessed: 03/13/24 Feeling nervous, anxious, or on edge: 1 = Several days Not being able to stop or control worryin = Not at all Worrying too much about different things: 0 = Not at all Trouble relaxin = Not at all Being so restless that it is hard to sit still: 0 = Not at all Becoming easily annoyed or irritable: 0 = Not at all Feeling afraid as if something awful might happen: 0 = Not at all Total SARAH-7 score (0-4 normal; 5-9 mild; 10-14 moderate; 15-21 severe): 1 Source: Developed by Drs. Carlos Baum, Nohemy Montalvo, Hal Savage and colleagues, with an educational alden from [employer]. SARAH-7 Assessment Billing SARAH-7 Assessment Tool: SARAH-7 Assessment 58138 Physical exam (Primary Care) Tobacco/Smoking Status: Tobacco use Status Tobacco use date assessed 09/22/23 03/13/24 08:41 Patient Tobacco Use Status Never used Tobacco 03/13/24 08:41 e-Cigarette/Vaping Use Currently Using 03/13/24 08:41 PHQ-9: PHQ-9 Score PHQ-9: Total score 3 03/13/24 08:41 Thrive Assessment: Date of Thrive Assessment Date Thrive assessed 09/22/23 03/13/24 08:41 Currently or been in a relationship where the following occur: No concerns reported Coding Level of Care Code Est Pt Level 4 (98675) Complex EM visit Add On G2211 Diagnoses Strain of left pectoralis muscle, initial encounter S29.011A Encounter type: initial encounter Complaint of paresthesia R20.2 Left leg paresthesias R20.2 Dysphagia, unspecified type R13.10 Dysphagia type: unspecified Trouble breathing R06.89 Additional Codes SARAH-7 Assessment Billing - SARAH-7 Assessment Tool: SARAH-7 Assessment 32510 ([id number]) Assessment & Plan Assessment & Plan (1) Strain of left pectoralis muscle: Code(s): S29.011A - Strain of muscle and tendon of front wall of thorax, initial encounter Category: Medical Qualifiers: Encounter type: initial encounter Qualified Code(s): S29.011A - Strain of muscle and tendon of front wall of thorax, initial encounter Plan: . (2) Complaint of paresthesia: Code(s): R20.2 - Paresthesia of skin Category: Medical Plan: . (3) Left leg paresthesias: Code(s): R20.2 - Paresthesia of skin Category: Medical Plan: . (4) Trouble swallowing: Code(s): R13.10 - Dysphagia, unspecified Qualifiers: Dysphagia type: unspecified Qualified Code(s): R13.10 - Dysphagia, unspecified Plan: . (5) Trouble breathing: Code(s): R06.89 - Other abnormalities of breathing Plan: . Plan . Orders: Orders US chest Today R07.9 - Chest pain, unspecified, S29.011A - Strain of muscle and tendon of front wall of thorax, initial encounter
[2024-03-13 08:44] VITALS: BP 120/70; PULSE 82; RESP 13; O2SAT 96; BMI 27.8
== END 2024-03-13 09:08 | disposition home or self-care (01) ==
LOC: HO.HMCFM 08:37
PROVIDERS: PCP Nurse Practitioner Family; Visit Provider Nurse Practitioner Family
DX: S29.011A Strain of muscle and tendon of front wall of thorax, initial encounter (principal); R20.2 Paresthesia of skin; R13.10 Dysphagia, unspecified; R06.89 Other abnormalities of breathing

== ENCOUNTER → 2024-03-13 08:36 | Outpatient (BNVA) | payer OTHER, SELFPAY | PROVIDERS: PCP Nurse Practitioner Family; Visit Provider Nurse Practitioner Family | DX: S29.011A Strain of muscle and tendon of front wall of thorax, initial encounter (principal); R20.2 Paresthesia of skin; R13.10 Dysphagia, unspecified; R06.89 Other abnormalities of breathing; X58.XXXA Exposure to other specified factors, initial encounter; Y93.9 Activity, unspecified; Y92.9 Unspecified place or not applicable; Y99.9 Unspecified external cause status | CPT/HCPCS: 96127 ==

== ENCOUNTER 2024-03-19 13:51 | Outpatient (REF) | payer OTHER, SELFPAY ==
--- NOTE | ~2024-03-19 | US_ITS ---
EXAMINATION: US CHEST CLINICAL INFORMATION: Strain of left pectoralis muscle. COMPARISON: None available. TECHNIQUE: Targeted sonographic evaluation of the left pectoralis region. FINDINGS/ US/US chest IMPRESSION: No significant sonographic abnormality. No evidence of collection, hematoma or mass. No hernia. No discrete intra-or perimuscular abnormality. No significant soft tissue swelling. Electronically signed by: Brooklyn Gutierrez MD 03/19/2024 04:56 PM [facility]
== END 2024-03-19 13:52 | disposition home or self-care (01) ==
LOC: HO.US 13:51
PROVIDERS: PCP Nurse Practitioner Family; Visit Provider Nurse Practitioner Family
DX: S29.011A Strain of muscle and tendon of front wall of thorax, initial encounter (principal); R07.9 Chest pain, unspecified
CPT/HCPCS: 76604

== ENCOUNTER 2024-03-22 13:00 | Outpatient (AMB) | payer OTHER, SELFPAY ==
--- NOTE | 2024-03-22 13:13 | MHC.PC.OV ---
Vital Signs 03/22/24 13:16 Height 5 ft 10 in Weight 191 lb 2 oz BMI 27.4 BP 108/74 Blood Pressure Location Rt brachial Position Sitting Respiration 13 Pulse 75 Pulse Source Pulse Oximeter Pulse Oximetry (%) 96 Oxygen Delivery Method Room Air Intake Visit Reasons: Review MRI results Intake Note: follow up mri results Phone Circuit Operator Required: No Allergies No Known Allergies Allergy (Verified 03/22/24 13:16) Medication List - Last Reconciled 03/22/24 by TERRA Modi No Known Home Meds Tobacco use date assessed: 09/22/23 Dental Screening Dental Screen Date: 09/22/23 HPI HPI Comments History of Present Illness Details 28-year-old male s/p L shoulder 01/12/2024 here today to f/u on MRI of C Spine, L Spine and US of chest Previously c/o Consistent pain in left side of chest; the shoulder pain is better. The chest muscle area feels tight. c/o headache or weird feeling in head, makes him feel lightheaded like he has to sit down. Cont w/ intermittent tingling on L side of neck. When sitting for 3-4 minutes after standing feels left leg falling asleep. When pressing on l pec has pain. Applied icy/hot patch with + short lived relief. Has also tried excedrin. Denies new medication, surgery, trauma. c/o Left leg falling asleep and tingling on the left side of his neck. He reports that the symptoms in his left leg has been present for several months. He describes the sensation as when you are body part is waking up after falling asleep, tingling like. The symptoms are intermittent and occur throughout the day randomly. In regards to the left side of his neck, he reports that this started after his last surgery. It starts at the base of his cervical spine and radiates up the side behind his ear and then up towards his jainism. Reports that it feels like there is something wrong with his nerves. 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 His head always feels heavy. He has had extensive workup in the past to include a brain MRI, multiple cardiac workups all which were nonrevealing and done to evaluate other phlebotomy complaints. He denies any injury, fever, chills, loss of function. He did see chiropractic medicine x1. Initially felt great relief. Then 24 hours later developed pain. Had some anxiety and brought himself to the emergency room at [facility]. I do not have any records of this but he reports that 2 sets of labs were done and this was normal. He canceled further follow up MRI results along with ultrasound results reviewed with him in detail today. Exam Awake alert oriented, no acute distress PERRLA, EOMI, no photophobia Neck has full range of motion in all directions Tonsils grade 2, no erythema or exudate, uvula mideline, managing secretions, no cervical adenopathy RRR LS CTAB Pain w/ palpation over L pec muscle, proximal to the shoulder and clavicle in one area. LUE FROM. Breast/nipple exam grossly normal WHITE x 4,neurovasc intact, normal reflexes, tone, strength. Plan: Refer to Neuro Spine for further evaluation and treatment. In regards to his upper body symptoms, mutual decision-making to hold off on any further diagnostics until evaluation by the marketing proposal specialist. He has not orthopedic follow up scheduled for April and I have advised him to keep this appointment. I would like to see him back in a few weeks to follow up on his treatment plan, sooner as needed. This note is constructed using voice recognition software. While every effort has been made to ensure accuracy in tax assessor, still errors may have been included Sometimes, these errors may affect the content or meaning of the given sentence . Total time spent caring for the patient today was 45 minutes. 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 [id number] - PHQ-9 Billing: Patient declined-do not bill Source: Developed by Drs. Carlos Baum, Nohemy Montalvo, Hal Savage and colleagues, with an educational alden from [employer]. Thrive Questionnaire Date Thrive assessed: 03/22/24 I am a: Patient What is your living situation today?: I have a steady place to live Within the past 12 months, did the food you bought not last and you didn't have the money to get more?: Never true Within the past 12 months, did you worry whether your food would run out before you got money to buy more?: Never true Do you have trouble paying for medicines?: No Do you have trouble getting transportation to medical appointments?: No Do you have trouble paying your heating and electricity bill?: No Do you have trouble taking care of your child, family member or friend?: No Do you have trouble with day-to-day activities such as bathing, preparing meals, shopping, managing finances, etc.?: No Are you currently unemployed and looking for a job?: No Are you interested in more education?: No Please select the resources that you would like help with: None Currently or been in a relationship where the following occur: No concerns reported THRIVE Score: 0 SARAH-7 AMB Questionnaire SARAH-7 Date SARAH - 7 assessed: 03/13/24 Source: Developed by Drs. Carlos Baum, Nohemy Montalvo, Hal Savage and colleagues, with an educational alden from [employer]. Physical exam (Primary Care) Vital Signs: Last Vital Signs Pulse 75 03/22/24 13:16 Resp 13 03/22/24 13:16 BP 108/74 03/22/24 13:16 Pulse Ox 96 03/22/24 13:16 Oxygen Delivery Method Room Air 03/22/24 13:16 BMI result Body Mass Index 27.4 Tobacco/Smoking Status: Tobacco use Status Tobacco use date assessed 09/22/23 03/22/24 13:15 Patient Tobacco Use Status Never used Tobacco 03/22/24 13:15 e-Cigarette/Vaping Use Currently Using 03/22/24 13:15 Thrive Assessment: Date of Thrive Assessment Date Thrive assessed 03/22/24 03/22/24 13:15 Currently or been in a relationship where the following occur: No concerns reported Results Reviewed Results Reviewed: [address] [place] [id number] Magnetic Resonance Report Signed Patient: Paul Bolton MR#: [id number] : 1995 Acct:[id number] Age/Sex: 28 / M ADM Date: 02/29/24 Loc: HO.MRI Attending Dr: Dayanna MONTOYA Ordering Physician: Dayanna Yi Date of Service: 02/29/24 Procedure(s): MR cervical spine wo con Accession Number(s): [id number] cc: Dayanna Yi~ EXAMINATION: MR CERVICAL SPINE WITHOUT CONTRAST CLINICAL INFORMATION: Neck pain. Into the left side. COMPARISON: None available. TECHNIQUE: MRI of the cervical spine was obtained using routine sequences without contrast. FINDINGS: Craniocervical junction is intact. No bone marrow STIR signal abnormality. The alignment is normal. The cervical spinal cord signal is normal. C2-3: No disc herniation. No neuroforamina stenosis. C3-4: No disc herniation. No neuroforamina stenosis. C4-5: No disc herniation. No neuroforamina stenosis. C5-6: No disc herniation. No neuroforamina stenosis. C6-7: No disc herniation. No neuroforamina stenosis. C7-T1: No disc herniation. No neuroforamina stenosis. No prevertebral compartment hematoma, mass or fluid collection. Flow-void signal within the main vessels is normal. Codominant vertebral arteries. Nonspecific prominent cervical lymph nodes, bilaterally. MR/MR cervical spine wo con IMPRESSION: No acute fracture or listhesis. No cord compression, edema and or myelopathy. 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 COMPARISON: None available. TECHNIQUE: MRI of the lumbar spine was obtained using routine sequences without contrast. FINDINGS: Last rib-bearing vertebra labeled T12. No bone marrow STIR signal abnormality. The alignment is normal. The conus medullaris ends at superior endplate of L1 with normal signal. T12-L1: No disc herniation. No compression upon neural elements. L1-2: No disc herniation. No neural foramina stenosis. L2-3: Broad-based disc bulging. Facet joint hypertrophy. No compression upon neural elements. L3-4: Broad-based bulging. Facet joint hypertrophy. Reduced AP diameter of the thecal sac. Bilateral neuroforamina narrowing. No compression upon neural elements. L4-5: Broad-based disc bulging abutting the L5 nerve roots on the lateral recesses. Bilateral facet joint hypertrophy. Bilateral neuroforamina narrowing. L5-S1: Broad-based disc bulging. Facet joint hypertrophy. Bilateral neuroforamina narrowing likely encroaching the exiting nerve roots. No prevertebral compartment hematoma, mass or fluid collection. MR/MR lumbar spine wo con IMPRESSION: Multilevel lumbar spondylosis, L2-3 to L5-S1 more conspicuous at L4-5 and L5-S1 levels likely encroaching the exiting nerve roots. Electronically signed by: Lex Guerrero MD 03/20/2024 01:56 PM [facility] Dictated By: Lex Harrison MD Signed By: <Electronically signed by Lex Turk MD in OV> 03/20/24 1356 DD/ 1831 TD/TT: 02/29/24 1843 Farm Machine Tender: [address] [address] Ultrasound Report Signed Patient: Paul Bolton MR#: [id number] : 1995 Acct:[id number] Age/Sex: 28 / M ADM Date: 03/19/24 Loc: HO.US Attending Dr: Dayanna MONTOYA Ordering Physician: Dayanna Yi Date of Service: 03/19/24 Procedure(s): US chest Accession Number(s): [id number] cc: Dayanna Yi~ EXAMINATION: US CHEST CLINICAL INFORMATION: Strain of left pectoralis muscle. COMPARISON: None available. TECHNIQUE: Targeted sonographic evaluation of the left pectoralis region. FINDINGS/ US/US chest IMPRESSION: No significant sonographic abnormality. No evidence of collection, hematoma or mass. No hernia. No discrete intra-or perimuscular abnormality. No significant soft tissue swelling. Electronically signed by: Brooklyn Gutierrez MD 03/19/2024 04:56 PM EST Dictated By: Brooklyn Gutierrez Signed By: <Electronically signed by Brooklyn Gutierrez in OV> 03/19/24 1656 DD/ 1353 TD/TT: 03/19/24 1408 Farm Machine Tender: Coding Level of Care Code Est Pt Level 5 (23259) Complex EM visit Add On G2211 Diagnoses Paresthesia of left arm R20.2 Left leg paresthesias R20.2 Complaint of paresthesia R20.2 Lumbar spondylosis M47.816 Assessment & Plan Assessment & Plan (1) Paresthesia of left arm: Code(s): R20.2 - Paresthesia of skin Category: Medical Plan: . (2) Left leg paresthesias: Code(s): R20.2 - Paresthesia of skin Category: Medical Plan: . (3) Complaint of paresthesia: Code(s): R20.2 - Paresthesia of skin Category: Medical Plan: . (4) Lumbar spondylosis: Code(s): M47.816 - Spondylosis without myelopathy or radiculopathy, lumbar region Category: Medical Plan: . Plan . Orders: Referrals Neuro Spine Referral M47.816 - Spondylosis without myelopathy or radiculopathy, lumbar region, R20.2 - Paresthesia of skin
[2024-03-22 13:16] VITALS: BP 108/74; PULSE 75; RESP 13; O2SAT 96; BMI 27.4
== END 2024-03-22 14:01 | disposition home or self-care (01) ==
PROVIDERS: PCP Nurse Practitioner Family; Visit Provider Nurse Practitioner Family
DX: R20.2 Paresthesia of skin (principal); M47.816 Spondylosis without myelopathy or radiculopathy, lumbar region

== ENCOUNTER → 2024-03-30 01:37 | Outpatient (BNV) | payer OTHER, SELFPAY | PROVIDERS: Emergency Provider Emergency Medicine; PCP Nurse Practitioner Family; Visit Provider Internal Medicine Cardiovascular Disease | DX: R07.9 Chest pain, unspecified (principal) | CPT/HCPCS: 93010 ==

== ENCOUNTER 2024-03-30 01:42 | Emergency (ER) | payer OTHER, SELFPAY ==
--- NOTE | 2024-03-30 | ECG_ITS ---
Test Reason : CP Blood Pressure : / mmHG Vent. Rate : 081 BPM Atrial Rate : 081 BPM P-R Int : 172 ms QRS Dur : 094 ms QT Int : 368 ms P-R-T Axes : 017 046 046 degrees QTc Int : 427 ms Normal sinus rhythm Normal ECG No previous ECGs available Referred By: Generic ED Physician Electronically Signed By:Jose Adorno
--- NOTE | ~2024-03-30 | XR_ITS ---
EXAMINATION: XR CHEST CLINICAL INFORMATION: Chest pain. COMPARISON: None available. TECHNIQUE: Frontal view of the chest was obtained. FINDINGS: Normal appearance of the cardiomediastinal structures. No effusions or pneumothoraces. Overall pattern of pulmonary vasculature. No focal pulmonary consolidation. No skeletal abnormalities identified. XR/XR chest 1V IMPRESSION: Normal chest. Lungs clear. Electronically signed by: Sean Presley MD 03/30/2024 04:49 AM [facility]
[2024-03-30 01:48] VITALS: BP 128/87; PULSE 84; RESP 16; TEMP 36.8; O2SAT 100; BMI 27.2
[2024-03-30 01:56] LABS: MANUAL DIFF FLAG NO
--- NOTE | 2024-03-30 01:57 | MHC.EDTECH ---
EKG done under !) minutes kathy. EKG machine time out of sync with actual current time
[2024-03-30 01:58] LABS: Basophils Absolute Auto 0.1 X10*3/uL (0.0-0.2); Basophils Percent Auto 0.9 % (0-2); Eosinophils Absolute Auto 0.1 X10*3/uL (0.0-0.4); Eosinophils Percent Auto 1.5 % (0-4); Hematocrit 44.4 % (42.0-52.0); Imm Gran Abs Auto 0.03 X10*3/uL (0.00-0.03); Imm Gran Pct Auto 0.3 % (0.0-0.4); Lymphocytes Absolute Auto 3.9 X10*3/uL (1.2-4.9); Lymphocytes Percent Auto 44.2 % (20-40); Mean Corpuscular Hemoglobin 31.3 pg (27.0-33.0); Mean Corpuscular Volume 86.9 fL (80.0-98.0); Mean Platelet Volume 9.7 fL (9.4-12.4); Monocytes Absolute Auto 0.4 X10*3/uL (0.1-1.2); Neutrophils Absolute Auto 4.3 x10*3/uL (2.0-8.3); Neutrophils Percent Auto 48.1 % (45-73); Platelet Count 309 X10*3/uL (160-400); Red Blood Count 5.11 X10*6/uL (4.60-5.80); Red Cell Distribution Width 11.3 % (11.0-16.0); White Blood Count 8.9 X10*3/uL (4.8-10.8)
[2024-03-30 02:16] LABS: Alanine Aminotransferase 64 U/L (0-40); Albumin Level 4.8 g/dL (3.5-5.0); Alkaline Phosphatase 62 U/L (39-117); Anion Gap 18 (12-20); Aspartate Amino Transferase 28 U/L (5-37); Bilirubin Total 0.4 mg/dL (0.0-1.0); Blood Urea Nitrogen 13 mg/dL (9-16); Carbon Dioxide 21 mmol/L (22-29); Chloride 103 mmol/L (96-108); Creatinine Clr Calc Pharmacy 125.3; Estimated Glomerular Filt Rate > 60; Glucose Random 117 mg/dL (60-115); Lipase 38 U/L (8-78); Magnesium 2.1 mg/dL (1.6-2.6); Sodium 138 mmol/L (135-145); Total Protein 8.7 g/dL (6.5-8.0)
[2024-03-30 02:21] LABS: Troponin-I High Sensitivity < 2.7 ng/L (<3.5-35.0)
[2024-03-30 02:34] LABS: Influenza A PCR NEGATIVE (Negative); Influenza B PCR NEGATIVE (Negative); Resp Syncy Virus RNA Qual PCR NEGATIVE (Negative); SARS COV2 PCR INHOUSE NEGATIVE (Negative)
--- NOTE | 2024-03-30 04:39 | ED_ITS ---
HPI - Chest Pain General Chief Complaint: Chest Pain Stated Complaint: Chest Pain Time Seen by Provider: 03/30/24 04:33 Source: patient Mode of arrival: ambulatory Limitations: no limitations History of Present Illness ED Provider: Dr. Elisa Cotter HPI narrative: Patient comes to the emergency room complaining of intermittent chest pain. Patient states that for the last time in months, patient has had intermittent chest pain. Patient states that this time, over the last couple of weeks, he has been having more persistent pain lasting longer. Patient states the pain is over a specific spot on the left side of the chest. Patient denies shortness of breath. Patient states that he has been seen at multiple hospitals throughout this past 7 months, patient has had multiple EKGs, echocardiograms and a Holter monitor, all have been inconclusive. Patient denies any syncopal or near syncopal episodes, denies any abdominal pain, no lower extremity pain or swelling. Patient denies any recent URIs Related Data Home Medications ?Medication ?Instructions ?Recorded ?Confirmed No Known Home Meds 02/09/24 03/22/24 Allergies Allergy/AdvReac Type Severity Reaction Status Date / Time No Known Allergies Allergy Verified 03/30/24 01:54 Review of Systems 2 Review of Systems: Constitutional : No Weight loss, No Fever, No Chills, No Night Sweats, No Fatigue, No Malaise ENT/Mouth : No Hearing loss, No Ear Pain, No Nasal Congestion, No Sinus Pain, No Hoarseness, No sore throat, No Rhinorrhea, No Swallowing Difficulty Eyes: No Eye Pain, No Swelling, No Redness, No Foreign Body, No Discharge, No Vision Changes Cardiovascular : Complaining of intermittent chest pain for 7 months, No SOB, No Dyspnea on Exertion, No Orthopnea, No Edema, No Palpitations Respiratory : No Cough, No Sputum, No Wheezing, No Smoke Exposure, No Dyspnea Gastrointestinal : No Nausea, No Vomiting, No Diarrhea, No Constipation, No abdominal Pain, No Hematochezia, No Melena Genitourinary : no irregular bleeding, No Dysuria, No Urinary Frequency, No Hematuria, No Urinary Incontinence, No Urgency, No Flank Pain, No Urinary Flow Changes, No Hesitancy Musculoskeletal : No joint pain, No Myalgias, No Joint Swelling Skin : No Skin Lesions, No rash Neuro : No Weakness, No Numbness, No Paresthesias, No Loss of Consciousness, No Dizziness, No Headache Psych : No Anxiety/Panic, No Depression, No SI/HI/AH/VH, No Social Issues, Heme/Lymph: No Bruising, No Bleeding,No Lymphadenopathy Endocrine : No Polyuria, No Polydipsia, No Temperature Intolerance [facility] Social History Social History Housing: House Are you a primary adult live in caregiver to a significant other at home: No Do you presently have visiting nurse or other home services: No Patient Tobacco Use Status: Never used Tobacco e-Cigarette/Vaping Use: Currently Using Second Hand Smoke Exposure: No Advance Directives: No Advance Directives Information Provided: Yes Do you have a plan to hurt others: No Plan service: No Current occupational status: employed Current occupation: [employer] , 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 Oriented X3. No acute distress. Well-appearing Eyes: Pupils equal, round and reactive to light. ENT: Pharynx normal. Neck: Normal inspection. Neck supple. No lymph nodes noted. No crepitus CVS: Normal heart rate and rhythm. Pulses normal. Normal S1 and S2. Reproducible chest pain to palpation on the left side of the chest. Respiratory: No respiratory distress. Breath sounds normal. No Wheezing. No rales Abdomen: Soft and nontender. No rigidity. No distention. Skin: Skin warm and dry. Normal skin color. Normal skin turgor. Extremities: No lower extremity edema. No Lacerations. No Rash Neuro: Oriented X 3. No motor deficit. No sensory deficit. Moving all extremities. No slurred speech. CN 2 through 12 grossly intact Psych: calm, cooperative, normal affect Medical Decision Making Medical Decision Making MDM Narrative: My interpretation of EKG: Normal sinus rhythm, heart rate 81, no ST segment depression or elevation, no T-wave inversion, QTC 427 -patient's CBC, chemistry troponin negative, serology negative for COVID flu and RSV. -given patient's physical exam, reproducible chest pain to palpation, etiology of pain likely musculoskeletal rather than cardiac or pulmonary. -my interpretation of chest x-ray: No infiltrates, no pneumothorax Differential Diagnosis Differential Diagnoses: The differential diagnosis associated with the presentation includes (Musculoskeletal pain, pleurisy, ACS, pneumothorax) Admission/Observation Consideration of admission/observation: Escalation of care including admission/observation considered Lab Data MDM Lab Attestation statement: I reviewed the patient's lab results. 03/30/24 01:51 03/30/24 01:51 Labs: Lab Results 03/30/24 Range/Units 01:51 WBC 8.9 (4.8-10.8) X10*3/uL RBC 5.11 (4.60-5.80) X10*6/uL Hgb 16.0 (14.0-18.0) g/dl Hct 44.4 (42.0-52.0) % MCV 86.9 (80.0-98.0) fL MCH 31.3 (27.0-33.0) pg MCHC 36.0 (31.0-36.0) g/dl RDW 11.3 (11.0-16.0) % Plt Count 309 (160-400) X10*3/uL MPV 9.7 (9.4-12.4) fL Immature Gran % (Auto) 0.3 (0.0-0.4) % Neut % (Auto) 48.1 (45-73) % Lymph % (Auto) 44.2 H (20-40) % [place] % (Auto) 5.0 (2-11) % Eos % (Auto) 1.5 (0-4) % Baso % (Auto) 0.9 (0-2) % Lymph # (Auto) 3.9 (1.2-4.9) X10*3/uL [place] # (Auto) 0.4 (0.1-1.2) X10*3/uL Eos # (Auto) 0.1 (0.0-0.4) X10*3/uL Baso # (Auto) 0.1 (0.0-0.2) X10*3/uL Abs Immat Gran (auto) 0.03 (0.00-0.03) X10*3/uL Absolute Neuts (auto) 4.3 (2.0-8.3) x10*3/uL Absolute Nucleated RBC 0.000 (0.0-0.012) X10*3/uL Nucleated RBC % (auto) 0.0 (0.0-0.2) /100WBC Sodium 138 (135-145) mmol/L Potassium 4.0 (3.3-5.1) mmol/L Chloride 103 (96-108) mmol/L Carbon Dioxide 21 L (22-29) mmol/L Anion Gap 18 (12-20) BUN 13 (9-16) mg/dL Creatinine 0.89 (0.5-1.4) mg/dL Estim Creat Clear Calc 125.3 Estimated GFR > 60 Random Glucose 117 H (60-115) mg/dL Calcium 10.0 (8.4-10.2) mg/dL Magnesium 2.1 (1.6-2.6) mg/dL Total Bilirubin 0.4 (0.0-1.0) mg/dL AST 28 (5-37) U/L ALT 64 H (0-40) U/L Alkaline Phosphatase 62 (39-117) U/L Troponin I High Sens < 2.7 (<3.5-35.0) ng/L Total Protein 8.7 H (6.5-8.0) g/dL Albumin 4.8 (3.5-5.0) g/dL Lipase 38 (8-78) U/L Influenza Type A (PCR) NEGATIVE (Negative) Influenza Type B (PCR) NEGATIVE (Negative) RSV RNA Qual (PCR) NEGATIVE (Negative) SARS-CoV-2 RNA (RT-PCR) NEGATIVE (Negative) Independent Interpretation I performed an independent interpretation of an: EKG and Plain X-Ray Discharge Plan Discharge Clinical Impression: Atypical chest pain Patient Disposition: Home, Self-Care Instructions: Chest Wall Pain (ED) Additional Instructions: Please follow-up with your primary care physician tomorrow. If you have any worsening or new symptoms, please return to the emergency room or call 911 Prescriptions: No Action No Known Home Meds Print Language: Vietnamese
[2024-03-30 05:05] VITALS: BP 128/87; PULSE 84; RESP 16; TEMP 36.8; O2SAT 100
== END 2024-03-30 05:07 | disposition home or self-care (01) ==
PROVIDERS: Emergency Provider Emergency Medicine; PCP Nurse Practitioner Family
DX: R07.89 Other chest pain (principal); Z03.818 Encounter for observation for suspected exposure to other biological agents ruled out; F17.200 Nicotine dependence, unspecified, uncomplicated
CPT/HCPCS: 0241U; 71045; 80053; 83690; 83735; 84484; 85025; 93005; 99283

== ENCOUNTER 2024-04-02 08:49 | Outpatient (AMB) | payer OTHER, SELFPAY ==
--- NOTE | 2024-04-02 08:54 | MHC.OFFVIS ---
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 Narayanan, presents today for initial evaluation low back pain radiating into bilateral lower extremities posteriorly with associated numbness and tingling in his hands and lower extremities and burning sensation in his lower back. He denies any past or recent trauma, injury, or falls. Patient reports in August 2023, he was sitting and watching TV and suddenly felt popping sensations and pain in his left chest and paresthesia with numbness and tingling in his left upper and lower extremities for which he went to ER for evaluation. For the past 7 month, patient was seen at multiple local ER, underwent multiple EKGs, echocardiograms and a Holter monitor, all have been inconclusive. [place] [facility] [place]24 with reproducible chest pain to palpation, etiology of pain likely musculoskeletal rather than cardiac or pulmonary per ER notes. He completed cervical and lumbar MRIs last month as noted below. His back radiates into his right buttock and right lateral hip and is exacerbated with changing positions, bending, or prolonged sitting. Neck pain increases with movements in all planes and mildly limited on the left with radiation into his left shoulder. He is doing well since shoulder surgery and reports continues with home stretching exercises. Pain is alleviated with rest, heat, activity modifications, oral and topical medications. Denies previous spine injections or surgery. To this point he has not tried any dedicated conservative treatment in the forms of physical therapy, chiropractic, acupuncture or injections. Denies any fever or chills, shortness of breaths, dizziness, weakness, foot drop, gait imbalances, bladder or bowel dysfunction or saddle anesthesia. Oswestry Neck Disability Index=23 (moderate disability) Location: Low back radiates down B/L legs, L>R, neck pain into left shoulder Duration: August 2023 Characteristics of symptom or complaint: Numbness tingling, stabbing, shooting, burning, throbbing, sharp, tightness Aggravating or associated factors: Quick movements, sitting, bending, laying down Relieving factors: Heating pad, Ibuprofen, rest, activity modifications Treatment: HEP for left shoulder s/p surgery 01/05, cervical and lumbar MRIs PFSH Family History (Updated 04/03/24 @ 09:19 by Charu Solitario CMA) Father Asthma Brother Asthma Sister Asthma Social History Housing: House Are you a primary healthcare liaison to a significant other at home: No Do you presently have visiting nurse or other home services: No Alcohol intake: current Alcohol intake frequency: holidays/special occasions only Patient Tobacco Use Status: Never used Tobacco e-Cigarette/Vaping Use: Currently Using Second Hand Smoke Exposure: No Substance Use Type: Former Substance User and Marijuana service: No Current occupational status: employed 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 Alert and oriented. Mood and affect appropriate. Follows and participates in conversation appropriately. Respiratory effort is unlabored. No cough. Able to transition from sit to stand unassisted. Ambulates with bilaterally normal heel strike and toe off. Neck Neck: Yes full ROM, Yes no lymphadenopathy, Yes supple, No anterior neck swelling, No torticollis, Yes no JVD, No prominent supraclavicular fat pad and No prominent dorsocervical fat pad General: Yes no CVA tenderness Back/Spine/Pelvis Other: Patient is able to walk and stand on heels and tip toes with no difficulties demonstrating good motor tone. No limping. Can flex forward to 70-75 degrees and extend to 5-10 degrees before experiencing lumbar pain. Demonstrates 5/5 strength of quadriceps bilaterally as well as flexion/dorsiflexion of bilateral feet against resistance. 2+ pedal pulses bilaterally. Straight leg rise with dorsiflexion negative bilaterally. +2 patellar and achilles reflexes bilaterally. Facet loading test positive bilaterally. Rochelle sign, Jacob?s, Pelvic compression and Stinchfield tests are positive on the right. No groin pain with I/E hip rotations. Valsalva maneuver is negative. Left shoulder well healed incisions, normal scarring. Back: no CVA tenderness Cervical Spine: cervical ROM normal, cervical muscular tenderness, pain with cervical ROM (left lateral rotation and bending), No cervical spasm, No Cervical spine tenderness and No step off deformity Thoracic/Lumbar Spine: thoracic and lumbar spine normal to inspection, No Thoracic/lumbar spine scar(s), Lasegue's sign negative, straight leg raise negative bilaterally, pain with thoraco-lumbar ROM, paraspinal muscle tenderness, thoraco-lumbar ROM limited, No thoracic spinal tenderness and No lumbar spinal tenderness Pelvis: no buttock tenderness Sacroiliac joints: bilaterally (right>left) tender to palpation Results Reviewed Results Reviewed: MR CERVICAL SPINE WITHOUT CONTRAST 02/29/24 CLINICAL INFORMATION: Neck pain. Into the left side. FINDINGS: Craniocervical junction is intact. No bone marrow STIR signal abnormality. The alignment is normal. The cervical spinal cord signal is normal. C2-3: No disc herniation. No neuroforamina stenosis. C3-4: No disc herniation. No neuroforamina stenosis. C4-5: No disc herniation. No neuroforamina stenosis. C5-6: No disc herniation. No neuroforamina stenosis. C6-7: No disc herniation. No neuroforamina stenosis. C7-T1: No disc herniation. No neuroforamina stenosis. No prevertebral compartment hematoma, mass or fluid collection. Flow-void signal within the main vessels is normal. Codominant vertebral arteries. Nonspecific prominent cervical lymph nodes, bilaterally. IMPRESSION: No acute fracture or listhesis. No cord compression, edema and or myelopathy. MR LUMBAR SPINE WITHOUT CONTRAST 02/29/24 CLINICAL INFORMATION: Left lower extremity numbness. FINDINGS: Last rib-bearing vertebra labeled T12. No bone marrow STIR signal abnormality. The alignment is normal. The conus medullaris ends at superior endplate of L1 with normal signal. T12-L1: No disc herniation. No compression upon neural elements. L1-2: No disc herniation. No neural foramina stenosis. L2-3: Broad-based disc bulging. Facet joint hypertrophy. No compression upon neural elements. L3-4: Broad-based bulging. Facet joint hypertrophy. Reduced AP diameter of the thecal sac. Bilateral neuroforamina narrowing. No compression upon neural elements. L4-5: Broad-based disc bulging abutting the L5 nerve roots on the lateral recesses. Bilateral facet joint hypertrophy. Bilateral neuroforamina narrowing. L5-S1: Broad-based disc bulging. Facet joint hypertrophy. Bilateral neuroforamina narrowing likely encroaching the exiting nerve roots. No prevertebral compartment hematoma, mass or fluid collection. IMPRESSION: Multilevel lumbar spondylosis, L2-3 to L5-S1 more conspicuous at L4-5 and L5-S1 levels likely encroaching the exiting nerve roots. MR SHOULDER WITH CONTRAST, LEFT 11/13/23 CLINICAL INFORMATION: Shoulder pain. Possible labral tear. COMPARISON: X-ray 10/04/2023 FINDINGS: ROTATOR CUFF: Mild supraspinatus tendinosis. Mild articular surface fraying anteriorly. Infraspinatus, teres minor, subscapularis is intact. No muscle atrophy or fatty infiltration. BICEPS: Intact CORACOACROMIAL ARCH: The undersurface of the acromion is curved with no subacromial spur. Minimal acromioclavicular arthritis. LABRUM/CAPSULE: No definite labral tear is seen. GLENOHUMERAL JOINT/MARROW: No evidence of acute fracture. No aggressive marrow replacing lesion. 3 small low T1/T2 signal foci in the humeral head, likely bone islands. This correlates with the sclerotic foci seen on the x-ray. IMPRESSION: 1. Mild supraspinatus tendinosis. Mild articular surface fraying anteriorly. 2. No definite labral tear is seen. Assessment & Plan Assessment & Plan (1) Back pain: Code(s): M54.9 - Dorsalgia, unspecified Category: Medical (2) Lumbar spondylosis: Code(s): M47.816 - Spondylosis without myelopathy or radiculopathy, lumbar region Category: Medical (3) Cervicalgia: Code(s): M54.2 - Cervicalgia Category: Medical (4) Paresthesia of left arm: Code(s): R20.2 - Paresthesia of skin Category: Medical (5) Left shoulder pain: Code(s): M25.512 - Pain in left shoulder Category: Medical Qualifiers: Chronicity: acute Qualified Code(s): M25.512 - Pain in left shoulder (6) Left leg paresthesias: Code(s): R20.2 - Paresthesia of skin Category: Medical Plan Recommend formal physical therapy to reduce pain and optimize mobility, improve strength, proprioception, and neuromuscular coordination. Script provided. Script provided for gabapentin 300 mg at bedtime. Side effects and precautions were discussed with patient. Encouraged daily physical activity, adequate hydration, good posture, activity modifications, and weight optimization. Continue home stretching exercises for shoulder, as well as for neck and back pain. All questions and concerns have been answered and the patient agreed with the plan. Follow up after physical therapy and sooner if needed. Orders: Orders PT Evaluation and Treatment 04/02/24 M25.512 - Pain in left shoulder, M47.816 - Spondylosis without myelopathy or radiculopathy, lumbar region, M54.2 - Cervicalgia, M54.9 - Dorsalgia, unspecified, R20.2 - Paresthesia of skin Medications: New gabapentin 300 mg PO BEDTIME 30 days 30 caps 0RF pain M54.9 - Dorsalgia, unspecified, R20.2 - Paresthesia of skin Coding Level of Care Code New Pt Level 4 (44974) Complex EM visit Add On G2211 Diagnoses Back pain M54.9 Lumbar spondylosis M47.816 Cervicalgia M54.2 Paresthesia of left arm R20.2 Acute pain of left shoulder M25.512 Chronicity: acute Left leg paresthesias R20.2
[2024-04-02 09:04] VITALS: BP 143/76; PULSE 84; O2SAT 97; BMI 28.1
== END 2024-04-02 10:13 | disposition home or self-care (01) ==
PROVIDERS: PCP Nurse Practitioner Family; Visit Provider Nurse Practitioner Family
DX: M54.9 Dorsalgia, unspecified (principal); M47.816 Spondylosis without myelopathy or radiculopathy, lumbar region; M54.2 Cervicalgia; R20.2 Paresthesia of skin; M25.512 Pain in left shoulder
CPT/HCPCS: 99204; G2211

== ENCOUNTER → 2024-04-02 08:49 | Outpatient (BNVA) | payer OTHER, SELFPAY | PROVIDERS: PCP Nurse Practitioner Family; Visit Provider Nurse Practitioner Family ==

== ENCOUNTER 2024-04-03 08:56 | Outpatient (AMB) | payer OTHER, SELFPAY ==
--- NOTE | 2024-04-03 09:16 | MHC.PC.OV ---
Vital Signs 04/03/24 09:22 Height 5 ft 10 in Weight 198 lb BMI 28.4 BP 104/72 Blood Pressure Location Rt brachial Position Sitting Pulse 79 Pulse Source Pulse Oximeter Pulse Oximetry (%) 96 Oxygen Delivery Method Room Air Intake Visit Reasons: Chest Complication - High Glucose - C Intake Note: Went to [facility] for chest pain. Had high glucose in ER. 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 Another ED visit for recurrent chest pain and muscle spasms. The chest pain, which has been recurrently prompting the patient to visit the emergency room, began on a Monday night, accompanied by muscle spasms. Previous evaluations determined that the pain was not cardiac-related, yet it remains a source of significant worry for the patient. Despite multiple emergency visits yielding negative findings, the patient expresses concerns over the persistent nature of the pain and muscle spasms, describing a sensation of tightness in the chest that is intense enough to trigger these ER visits. The patient notes this has been exacerbated by a past incident of a chest muscle pop from which he has not fully recovered. He wishes to review ED lab testing which showed random Glucose 117 and ALT 60, otherwise normal labs. During a visit to a pain management clinic, arthritis in his back and neck was diagnosed; however, it was noted that this was not linked to nerve issues. The patient was advised to begin physical therapy. Despite this, there is frustration with the perceived lack of understanding or clear diagnosis. MRI findings indicate nerve encroachment, although the reviewing provider did not attribute these findings to his symptoms. This discrepancy is causing the patient further confusion. Previous diagnostic tests, including MRIs, have shown readings that contradict certain provider opinions. Of note, anxiety was previously discussed, and the patient had been started on medication, which he subsequently discontinued. Review of Systems - Gastrointestinal: Reports consistent stomach discomfort, particularly noting pain under the rib exacerbated when lying down, reported for years. No current use of supplements. - Reports long-standing sensitivity and discomfort in the stomach, RUQ, intermittent, mild though not new or acute. Reports consuming alcohol on occasion, but not excessively. Physical Exam Awake alert NAD Shows me a video of his chest wall which shows muscle fasciculation across his anterior chest from the left pec diagnoally towards his RUQ Results from the ED: - Labs: Elevated ALT at 64, normal CBC, electrolytes, kidney function, and pancreas. Random glucose level of 117. - Negative cardiac markers. - Negative COVID-19, RSV, and flu screenings. ED note from [facility] [place] reviewed. Plan - For chest pain and muscle spasms: Initiate treatment with prescribed gabapentin as prescribed by pain mgmt to address nerve pain and provide symptomatic relief. - For anxiety: The gabapentin may help. Reassured this is not cardiac and there is no need for ED visits. - For elevated liver enzymes: Monitor and reassess in the context of acetaminophen usage and recent alcohol intake; consider further evaluation if levels remain elevated. - For back and neck arthritis: Pursue suggested physical therapy to address arthritis symptoms, as this may be required before any procedures are offered. - For nerve encroachment & Muscle fasciculations: Neurology referral proposed for further assessment. - Follow-up: Plan for A1c testing to confirm blood glucose status and potential consultation if abnormalities detected. A1c done in office today 5.9% Patient was informed and verbally consented to the use of an ambient scribevfor clinic note documentation during this visit. Discussion Notes I discussed with the patient the approach to his recurrent chest pain, emphasizing that the emergency room evaluations have consistently ruled out acute cardiac events. I explained the potential benefits of starting gabapentin to manage nerve pain and related symptoms, also highlighting its utility in treating anxiety, should it be a contributing factor. The discussion included the necessity of pursuing physical therapy as a step towards addressing his back and neck arthritis, per insurance protocol before considering other procedures. I informed the patient of the mildly elevated liver enzyme detected and reassured him regarding the common fluctuations related to non-alarming factors such as medication and alcohol use. Offerd and declined further workup/testing. We discussed the rationale for an A1c test to rule out prediabetes, given his recent random glucose measurement. I proposed a neurology referral to explore any potential neurological causes of his symptoms, acknowledging his willingness to proceed with this evaluation. Patient Instructions - Start gabapentin as prescribed for nerve-related symptoms and monitor for symptom improvement. - Engage in recommended physical therapy sessions for arthritis management. - Abstain from alcohol and acetaminophen to prevent potential liver enzyme elevation. - Undergo A1c testing as arranged to assess glucose metabolism. Done today 5.9% - Neuromuscular consultation for comprehensive nerve-related evaluation placed. RTO in a few weeks to f/u, sooner PRN Total time spent caring for the patient today was 45 minutes. This includes time spent before the visit reviewing the chart, time spent during the visit, and time spent after the visit on documentation [facility] Family History (Updated 04/03/24 @ 09:19 by Charu Solitario CMA) Father Asthma Brother Asthma Sister Asthma Social History (Updated 04/03/24 @ 09:20 by Chaur Solitario CMA) Housing: House Are you a primary body care manager to a significant other at home: No Do you presently have visiting nurse or other home services: No Alcohol intake: current Alcohol intake frequency: holidays/special occasions only Patient Tobacco Use Status: Never used Tobacco e-Cigarette/Vaping Use: Currently Using Second Hand Smoke Exposure: No Substance Use Type: Former Substance User and Marijuana service: No Current occupational status: employed 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 , 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) Cognitive needs: No Hearing needs: No Vision needs: No Questionnaire Thrive Questionnaire Date Thrive assessed: 03/13/24 I am a: Patient What is your living situation today?: I have a steady place to live Within the past 12 months, did the food you bought not last and you didn't have the money to get more?: Never true Within the past 12 months, did you worry whether your food would run out before you got money to buy more?: Never true Do you have trouble paying for medicines?: No Do you have trouble getting transportation to medical appointments?: No Do you have trouble paying your heating and electricity bill?: No Do you have trouble taking care of your child, family member or friend?: No Do you have trouble with day-to-day activities such as bathing, preparing meals, shopping, managing finances, etc.?: No Are you currently unemployed and looking for a job?: No Are you interested in more education?: No Please select the resources that you would like help with: None Currently or been in a relationship where the following occur: No concerns reported THRIVE Score: 0 AUDIT C Alcohol Use Questionnaire (AUDIT-C) 1. How often do you have a drink containing alcohol?: Monthly or less 2. How many drinks containing alcohol do you have on a typical day when you are drinking?: 3 or 4 3. How often do you have six or more drinks on one occasion?: Less than monthly Total Score: 3 SARAH-7 AMB Questionnaire SARAH-7 Date SARAH - 7 assessed: 03/13/24 Source: Developed by Drs. Carlos Baum, Nohemy Montalvo, Hal Savage and colleagues, with an educational alden from [employer]. Physical exam (Primary Care) Vital Signs: Last Vital Signs Pulse 79 04/03/24 09:22 BP 104/72 04/03/24 09:22 Pulse Ox 96 04/03/24 09:22 Oxygen Delivery Method Room Air 04/03/24 09:22 BMI result Body Mass Index 28.4 Tobacco/Smoking Status: Tobacco use Status Tobacco use date assessed 09/22/23 04/03/24 09:17 Patient Tobacco Use Status Never used Tobacco 04/03/24 09:20 e-Cigarette/Vaping Use Currently Using 04/03/24 09:20 Thrive Assessment: Date of Thrive Assessment Date Thrive assessed 03/13/24 04/03/24 09:17 Currently or been in a relationship where the following occur: No concerns reported Results AMB Hemoglobin A1c AMB Hemoglobin A1c 5.9 % Last Edit by Yesika Turk on 04/03/24 09:49 Results Reviewed Results Reviewed: Laboratory Last Values Hgb A1c (Clinic) 5.9 % (4.0-6.0) 04/03/24 09:35 Coding Level of Care Code Est Pt Level 5 (87071) Complex EM visit Add On G2211 Diagnoses Hospital discharge follow-up Z09 Complaint of paresthesia R20.2 Left leg paresthesias R20.2 Muscle fasciculation R25.3 Costochondral chest pain R07.89 SARAH (generalized anxiety disorder) F41.1 Cervicalgia M54.2 Paresthesia of left arm R20.2 Prediabetes R73.03 Assessment & Plan Assessment & Plan (1) Hospital discharge follow-up: Code(s): Z09 - Encounter for follow-up examination after completed treatment for conditions other than malignant neoplasm Category: Medical (2) Complaint of paresthesia: Code(s): R20.2 - Paresthesia of skin Category: Medical (3) Left leg paresthesias: Code(s): R20.2 - Paresthesia of skin Category: Medical (4) Muscle fasciculation: Code(s): R25.3 - Fasciculation Category: Medical (5) Costochondral chest pain: Code(s): R07.89 - Other chest pain Category: Medical (6) SARAH (generalized anxiety disorder): Code(s): F41.1 - Generalized anxiety disorder Category: Medical (7) Cervicalgia: Code(s): M54.2 - Cervicalgia Category: Medical (8) Paresthesia of left arm: Code(s): R20.2 - Paresthesia of skin Category: Medical (9) Prediabetes: Comment: a1c 5.9% 04/03/24 Code(s): R73.03 - Prediabetes Category: Medical Plan . Orders: Orders AMB Hemoglobin A1c Today Z13.9 - Encounter for screening, unspecified Referrals Neuromuscular Medicine Referral R07.89 - Other chest pain, R20.2 - Paresthesia of skin, R25.3 - Fasciculation
[2024-04-03 09:22] VITALS: BP 104/72; PULSE 79; O2SAT 96; BMI 28.4
== END 2024-04-03 10:39 | disposition home or self-care (01) ==
PROVIDERS: PCP Nurse Practitioner Family; Visit Provider Nurse Practitioner Family
DX: R20.2 Paresthesia of skin (principal); Z09 Encounter for follow-up examination after completed treatment for conditions other than malignant neoplasm; R25.3 Fasciculation; R73.03 Prediabetes; R07.89 Other chest pain; F41.1 Generalized anxiety disorder; M54.2 Cervicalgia

== ENCOUNTER → 2024-04-03 08:56 | Outpatient (BNVA) | payer OTHER, SELFPAY | PROVIDERS: PCP Nurse Practitioner Family; Visit Provider Nurse Practitioner Family | DX: Z09 Encounter for follow-up examination after completed treatment for conditions other than malignant neoplasm (principal); R20.2 Paresthesia of skin; R25.3 Fasciculation; R07.89 Other chest pain; F41.1 Generalized anxiety disorder; M54.2 Cervicalgia; R73.03 Prediabetes | CPT/HCPCS: 83036 ==

== ENCOUNTER 2024-04-30 00:41 | Emergency (ER) | payer OTHER, SELFPAY ==
--- NOTE | ~2024-04-30 | CT_ITS ---
EXAMINATION: CT ABDOMEN AND PELVIS WITH CONTRAST CLINICAL INFORMATION: Right lower quadrant pain and tenderness. COMPARISON: None available. TECHNIQUE: Multidetector volumetric images were obtained from the superior aspect of the liver through the pubic symphysis following administration 85 mL of Omnipaque 350 intravenous contrast. Sagittal and coronal reformatted images were obtained on the technologist's workstation. Oral contrast: No This CT examination was performed using dose optimization techniques as appropriate, variously including the following: *Automated exposure control *Adjustment of mA and/or kV according to patient size (this includes techniques or standardized protocols for targeted exams where dose is matched to indication/reason for exam; i.e. extremities or head) *Use of iterative reconstruction technique DLP: 536 mGy-cm FINDINGS: LUNG BASES: The visualized lung bases are unremarkable. LIVER, GALLBLADDER, AND BILIARY TREE: The liver is of mild diminished attenuation. No focal liver lesions are seen. There is no intrahepatic biliary duct dilatation. The gallbladder is unremarkable with no evidence of radiopaque gallstones, gallbladder wall thickening, or obvious pericholecystic inflammatory changes. PANCREAS: Unremarkable. SPLEEN: Unremarkable. ADRENAL GLANDS: Unremarkable. KIDNEYS AND URETERS: The kidneys are normal in size, shape, and attenuation. No hydronephrosis, hydroureter, or calculi seen. No perinephric stranding. BLADDER: Unremarkable. GASTROINTESTINAL TRACT: There are prominent fluid-filled small bowel loops. The appendix is visualized and is within normal limits. ABDOMINAL WALL: No significant hernia is appreciated. LYMPH NODES: Normal. VASCULAR: Unremarkable. PELVIC VISCERA: Unremarkable. OSSEOUS STRUCTURES: Unremarkable. CT/CT abdomen pelvis w IV con IMPRESSION: Prominent fluid-filled small bowel loops which may be seen with a mild enteritis. Mild fatty infiltration of the liver. Fleischner guidelines were followed. Electronically signed by: Jak Frederick MD 04/30/2024 06:09 AM [facility]
[2024-04-30 00:46] VITALS: BP 140/92; PULSE 83; RESP 16; TEMP 37; O2SAT 96; BMI 27.3
[2024-04-30 01:11] LABS: MANUAL DIFF FLAG NO
[2024-04-30 01:17] LABS: Basophils Absolute Auto 0.1 X10*3/uL (0.0-0.2); Basophils Percent Auto 0.9 % (0-2); Eosinophils Absolute Auto 0.1 X10*3/uL (0.0-0.4); Eosinophils Percent Auto 1.3 % (0-4); Hematocrit 44.2 % (42.0-52.0); Hemoglobin 15.6 g/dl (14.0-18.0); Imm Gran Abs Auto 0.03 X10*3/uL (0.00-0.03); Imm Gran Pct Auto 0.4 % (0.0-0.4); Lymphocytes Absolute Auto 2.8 X10*3/uL (1.2-4.9); Lymphocytes Percent Auto 36.3 % (20-40); Mean Corpuscular HGB Conc 35.3 g/dl (31.0-36.0); Mean Corpuscular Hemoglobin 30.9 pg (27.0-33.0); Mean Corpuscular Volume 87.5 fL (80.0-98.0); Mean Platelet Volume 9.7 fL (9.4-12.4); Monocytes Absolute Auto 0.4 X10*3/uL (0.1-1.2); Monocytes Percent Auto 5.8 % (2-11); Neutrophils Absolute Auto 4.2 x10*3/uL (2.0-8.3); Neutrophils Percent Auto 55.3 % (45-73); Platelet Count 315 X10*3/uL (160-400); Red Blood Count 5.05 X10*6/uL (4.60-5.80); Red Cell Distribution Width 11.5 % (11.0-16.0); White Blood Count 7.7 X10*3/uL (4.8-10.8)
[2024-04-30 01:33] LABS: Albumin Level 4.8 g/dL (3.5-5.0); Anion Gap 14 (12-20); Aspartate Amino Transferase 19 U/L (5-37); Bilirubin Total 0.6 mg/dL (0.0-1.0); Blood Urea Nitrogen 11 mg/dL (9-16); Calcium 9.8 mg/dL (8.4-10.2); Carbon Dioxide 25 mmol/L (22-29); Chloride 101 mmol/L (96-108); Creatinine Clr Calc Pharmacy 123.9; Estimated Glomerular Filt Rate > 60; Glucose Random 104 mg/dL (60-115); Lipase 39 U/L (8-78); Potassium 3.6 mmol/L (3.3-5.1); Sodium 136 mmol/L (135-145); Total Protein 7.9 g/dL (6.5-8.0)
--- NOTE | 2024-04-30 01:52 | ED.GENADULT ---
HPI - General Adult General Chief complaint: Abdominal Pain Stated complaint: appendix pain Time Seen by Provider: 04/30/24 01:52 History of Present Illness ED Provider: Elma LOVELL narrative: The patient is a 28-year-old male who is generally in good health. A little over 48 hours ago he was on vacation in [place]. The patient says that on Monday evening he developed fairly abrupt onset pain in his right lower abdomen. The pain has been persistent since then. He has no associated fever, sweats, chills. He has not had any anorexia. He has had no flank pain. No testicular pain. No penile pain. No urinary discomfort. He ate dinner earlier this evening with a normal appetite. He denies any injury or any straining or exertion around the time that the pain began. He says he is having trouble finding a comfortable position. Related Data Home Medications ?Medication ?Instructions ?Recorded ?Confirmed ibuprofen 200 mg tablet 200 mg PO Q6H PRN 04/02/24 04/03/24 Previous Rx's ?Medication ?Instructions ?Recorded gabapentin 300 mg capsule 300 mg PO BEDTIME pain 30 days #30 04/02/24 caps hyoscyamine sulfate 0.125 mg tablet 0.25 mg (2 x 0.125 mg) PO TID PRN 04/30/24 abdominal pain #12 tabs ibuprofen 400 mg tablet 400 mg PO Q6H PRN pain #14 tabs 04/30/24 morphine 15 mg immediate release 15 mg PO Q6H PRN pain #8 tabs 04/30/24 tablet morphine 15 mg immediate release 15 mg PO Q6H PRN pain #8 tabs 04/30/24 tablet Allergies Allergy/AdvReac Type Severity Reaction Status Date / Time No Known Allergies Allergy Verified 04/30/24 00:47 Review of Systems Review of Systems: Yes all other systems are reviewed and are negative [facility] Family History Family History (Updated 04/03/24 @ 09:19 by Charu Solitario CMA) Father Asthma Brother Asthma Sister Asthma Social History Social History (Updated 04/03/24 @ 09:20 by Charu Solitario CMA) Housing: House Are you a primary lead care manager to a significant other at home: No Do you presently have visiting nurse or other home services: No Alcohol intake: current Alcohol intake frequency: holidays/special occasions only Patient Tobacco Use Status: Never used Tobacco Smoked in Last 30 Days: No e-Cigarette/Vaping Use: Currently Using Second Hand Smoke Exposure: No Use of substances other than those prescribed or required for medical reasons: No Substance Use Type: Former Substance User and Marijuana Advance Directives: No Advance Directives Information Provided: Yes Do you have a plan to hurt others: No Plan service: No Current occupational status: employed 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 , 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) Cognitive needs: No Hearing needs: No Vision needs: No Physical Exam ED Vital Signs: Vital Signs - 24 hr 04/30/24 00:46 04/30/24 02:44 04/30/24 04:33 Temperature 98.6 F 98.6 F 97.9 F Pulse Rate 83 77 73 Respiratory Rate 16 18 16 Blood Pressure 140/92 H 125/71 131/93 H Pulse Oximetry 96 97 98 Oxygen Delivery Method Room Air Room Air Room Air 04/30/24 06:14 04/30/24 07:12 Temperature 97.5 F 97.5 F Pulse Rate 73 73 Respiratory Rate 18 18 Blood Pressure 103/53 L 103/53 L Pulse Oximetry 97 97 Oxygen Delivery Method Room Air Room Air BMI result Body Mass Index 27.3 Const Other: The patient has the appearance of an ordinarily healthy and athletic looking 28-year-old. He does not appear in acute distress. [facility] Head: Yes normal to inspection Face and sinus: Yes normal facial exam Mouth: Normal oral and palatal mucosa present, oropharynx normal and moist mucous membranes Eyes General: appearance normal, both eyes and all related structures Neck Neck: Yes full ROM Resp Effort & Inspection: normal respiratory effort Auscultation: clear to auscultation bilaterally Cardio Rate: regular rate Rhythm: regular rhythm Heart sounds: S1 normal heart sound present and S2 normal heart sound present GI Other: The abdomen is flat and soft. The patient has tenderness in the right lower quadrant. The other quadrants seem nontender. Back/Spine/Pelvis Other: No CVA percussion tenderness on either flank Skin Other: Skin is dry and unremarkable Neuro Other: The patient is awake and alert with a normal mental status. Cranial nerves are grossly intact. He moves extremities normally. He is normal. He seems neurologically intact. Extrem Other: No peripheral edema Medications Administered Discontinued Medications Generic Name Dose Route Start Last Admin Trade Name Freq PRN Reason Stop Dose Admin Sodium Chloride 1,000 mls @ 999 mls/hr 04/30/24 02:30 04/30/24 03:48 Ns IV 04/30/24 03:30 Infused .Q1H1M GOOD Infusion Acetaminophen 1,000 mg in 100 mls @ 400 mls/hr 04/30/24 04:52 04/30/24 05:23 Ofirmev IV 04/30/24 05:06 Infused ONCE ONE Infusion Iohexol 85 ml 04/30/24 02:36 04/30/24 02:36 Iohexol 350 Mg/Ml 100 Ml Infus..Btl IV 04/30/24 02:37 85 ml ONCE ONE Administration Ketorolac Tromethamine 10 mg 04/30/24 02:26 04/30/24 02:36 Ketorolac Tromethamine 15 Mg/Ml Vial IVPUSH 04/30/24 02:27 10 mg ONCE ONE Administration Medical Decision Making Medical Decision Making [facility] Narrative: The patient is a 28-year-old male who presents with a little over 48 hours of abdominal pain that he feels primarily in the right lower quadrant. The pain began in the right lower quadrant and persists in the right lower quadrant. On exam the patient does not appear obviously ill. He has no CVA percussion tenderness on his flank. He has no urinary symptoms or symptoms related to his genitalia. He describes having dinner earlier this evening with no significant change in his appetite. Overall the patient is description of his symptoms is not highly suggestive of appendicitis although he is tender in the right lower quadrant. He has a normal white count and differential after 48 hours of symptoms. This would also make appendicitis less likely. The patient was given a dose of ketorolac without significant change in his pain. He does not have any blood in his urine to suggest a kidney stone, nor does he have any CVA percussion tenderness. Ultimately the patient had a CT scan of the abdomen and pelvis. This was read as showing a normal appendix but there was a finding of ?prominent fluid-filled small bowel loops which may be seen with a mild enteritis? The patient was treated with IV ketorolac and IV acetaminophen. He continued to complain of a fair amount of discomfort. I did not have any significant suspicion for behavior. I explained to the patient that he seems to have a condition called enteritis which is typically a self-limited condition. I explained that his appendix was seen and was within normal limits. I therefore felt that he likely has some kind of enteritis which will likely be self-limiting. I think he may be discharged. He is given a prescription for ibuprofen that he may use as needed for discomfort. He was also given a prescription for hyoscyamine. Lastly he was also given 8 tablets of MSIR, 15 mg each for use when he is resting at night. He should follow up with his regular doctor. He should return if he is worse. Lab Data 04/30/24 01:03 04/30/24 01:03 Labs: Lab Results 04/30/24 04/30/24 Range/Units 01:03 02:09 WBC 7.7 (4.8-10.8) X10*3/uL RBC 5.05 (4.60-5.80) X10*6/uL Hgb 15.6 (14.0-18.0) g/dl Hct 44.2 (42.0-52.0) % MCV 87.5 (80.0-98.0) fL MCH 30.9 (27.0-33.0) pg MCHC 35.3 (31.0-36.0) g/dl RDW 11.5 (11.0-16.0) % Plt Count 315 (160-400) X10*3/uL MPV 9.7 (9.4-12.4) fL Immature Gran % (Auto) 0.4 (0.0-0.4) % Neut % (Auto) 55.3 (45-73) % Lymph % (Auto) 36.3 (20-40) % Stephenson % (Auto) 5.8 (2-11) % Eos % (Auto) 1.3 (0-4) % Baso % (Auto) 0.9 (0-2) % Lymph # (Auto) 2.8 (1.2-4.9) X10*3/uL Stephenson # (Auto) 0.4 (0.1-1.2) X10*3/uL Eos # (Auto) 0.1 (0.0-0.4) X10*3/uL Baso # (Auto) 0.1 (0.0-0.2) X10*3/uL Abs Immat Gran (auto) 0.03 (0.00-0.03) X10*3/uL Absolute Neuts (auto) 4.2 (2.0-8.3) x10*3/uL Absolute Nucleated RBC 0.000 (0.0-0.012) X10*3/uL Nucleated RBC % (auto) 0.0 (0.0-0.2) /100WBC Sodium 136 (135-145) mmol/L Potassium 3.6 (3.3-5.1) mmol/L Chloride 101 (96-108) mmol/L Carbon Dioxide 25 (22-29) mmol/L Anion Gap 14 (12-20) BUN 11 (9-16) mg/dL Creatinine 0.90 (0.5-1.4) mg/dL Estim Creat Clear Calc 123.9 Estimated GFR > 60 Random Glucose 104 (60-115) mg/dL Calcium 9.8 (8.4-10.2) mg/dL Total Bilirubin 0.6 (0.0-1.0) mg/dL AST 19 (5-37) U/L ALT 35 (0-40) U/L Alkaline Phosphatase 60 (39-117) U/L Total Protein 7.9 (6.5-8.0) g/dL Albumin 4.8 (3.5-5.0) g/dL Lipase 39 (8-78) U/L Urine Color Yellow Urine Appearance Clear Urine pH 6.0 (5.0-9.0) Ur Specific [place] >= 1.030 H (1.005-1.025) Urine Protein Negative (Neg-Trace) mg/dL Urine Glucose (UA) Negative (Negative) mg/dL Urine Ketones Trace (Negative) mg/dL Urine Blood Negative (Negative) Urine Nitrite Negative (Negative) Ur Leukocyte Esterase Negative (Negative) Urine RBC 0-2 (0-2) /HPF Urine WBC 0-5 (0-5) /HPF Ur Squamous Epith Cells 0-2 (0-2) /HPF Urine Bacteria None Seen (None Seen) Hyaline Casts 0-2 (0-2) /LPF Discharge Plan Discharge Clinical Impression: Right lower quadrant abdominal pain, Enteritis Patient Disposition: Home, Self-Care Instructions: Enteritis (ED) Additional Instructions: Your CT scan shows findings of a condition called ?enteritis. This implies an irritation to the small intestine which is usually self-limited and does not require specific treatment. For pain during the day you may use acetaminophen and ibuprofen. I have also sent a prescription for medication called hyoscyamine, an antispasmodic medication, which might help as well. You are having a lot of pain and need some additional medication at night you may use the morphine tablets prescribed. However you must not work taking morphine or drive taking morphine. You should only take this medication when you can rest and take it easy. My expectation is that your symptoms should get better in the next few days. Additionally you may develop diarrhea. Please contact your regular doctor's office for a follow up appointment to discuss how you are doing. Return to the emergency room if you feel significantly worse. Prescriptions: New ibuprofen 400 mg tablet 400 mg PO Q6H PRN (Reason: pain) Qty: 14 0RF morphine 15 mg tablet 15 mg PO Q6H PRN (Reason: pain) Qty: 8 0RF Rx Instructions: Partial Fill upon patient request. hyoscyamine sulfate 0.125 mg tablet 0.25 mg PO TID PRN (Reason: abdominal pain) Qty: 12 0RF morphine 15 mg tablet 15 mg PO Q6H PRN (Reason: pain) Qty: 8 0RF Rx Instructions: Partial Fill upon patient request. No Action ibuprofen 200 mg tablet 200 mg PO Q6H PRN gabapentin 300 mg capsule 300 mg PO BEDTIME 30 Days Qty: 30 0RF Referrals: Dayanna Yi FNP-BRIEN [Nurse Practitioner] - (Abdominal pain, enteritis on CT scan) Interventions: ED Discharge Assessment Last Done: 04/30/24 07:12 Print Language: Jamaican
[2024-04-30 02:15] LABS: Appearance Urine Clear; Color Urine Yellow; Glucose Urine UA Negative (Negative); Leukocyte Esterase Urine Negative (Negative); Nitrite Urine Negative (Negative); Specific Gravity - Urine >= 1.030 (1.005-1.025); Urine Blood Negative (Negative); Urine Ketones Trace mg/dL (Negative); Urine Protein Negative (Neg-Trace)
[2024-04-30 02:20] LABS: Bacteria Urine None Seen (None Seen); Hyaline Casts Urine 0-2 /LPF (0-2); RBC Urine 0-2 /HPF (0-2); Squamous Epithelial Cell Urine 0-2 /HPF (0-2); WBC Urine 0-5 /HPF (0-5)
[2024-04-30 02:23] LABS: Alanine Aminotransferase 35 U/L (0-40); Alkaline Phosphatase 60 U/L (39-117)
--- NOTE | 2024-04-30 02:23 | PC.NURSE ---
pt ambulatory to bathroom with steady gait, pt reports pain with urination. urine sample obtained
[2024-04-30] MEDS: Ketorolac Tromethamine 15 MG/ML VIAL 10 MG IVPUSH (02:36)
[2024-04-30] MEDS: iohexoL 350 MG/ML 100 ML INFUS..BTL 85 ML IV (02:36)
[2024-04-30] MEDS: 0.9 % Sodium Chloride 1,000 ML 999 ML IV (02:37)
[2024-04-30 02:44] VITALS: BP 125/71; PULSE 77; RESP 18; TEMP 37; O2SAT 97
[2024-04-30 04:33] VITALS: BP 131/93; PULSE 73; RESP 16; TEMP 36.6; O2SAT 98
[2024-04-30] MEDS: Acetaminophen 1,000 MG/100 ML PIGGYBACK 400 MG IV (05:00)
[2024-04-30 06:14] VITALS: BP 103/53; PULSE 73; RESP 18; TEMP 36.4; O2SAT 97
[2024-04-30 07:12] VITALS: BP 103/53; PULSE 73; RESP 18; TEMP 36.4; O2SAT 97
== END 2024-04-30 07:29 | disposition home or self-care (01) ==
PROVIDERS: Emergency Provider Emergency Medicine
DX: K52.9 Noninfective gastroenteritis and colitis, unspecified (principal); R10.31 Right lower quadrant pain; R11.2 Nausea with vomiting, unspecified; R10.2 Pelvic and perineal pain; Z79.899 Other long term (current) drug therapy
CPT/HCPCS: 36415; 74177; 80053; 81001; 83690; 85025; 96361; 96365; 96375; 99285; J0131; J1885; Q9967

== ENCOUNTER 2024-09-13 13:07 | Outpatient (REF) | payer OTHER, SELFPAY ==
[2024-09-13 15:09] LABS: Carbon Monoxide Refer to POC result
[2024-09-17 13:17] LABS: LEAD <1.0 mcg/dL (<40.0)
== END 2024-09-13 13:08 | disposition home or self-care (01) ==
LOC: HO.LAB 13:07
PROVIDERS: PCP Nurse Practitioner Family; Visit Provider Nurse Practitioner Family
DX: R20.2 Paresthesia of skin (principal); R07.89 Other chest pain; Z77.098 Contact with and (suspected) exposure to other hazardous, chiefly nonmedicinal, chemicals
CPT/HCPCS: 36415; 82375; 83655; 84202; 96127

== ENCOUNTER 2024-09-13 13:07 | Outpatient (AMB) | payer OTHER, SELFPAY ==
--- NOTE | 2024-09-13 13:14 | A.OFFPC_ITS ---
Vital Signs 3 09/13/24 13:17 Height 5 ft 10 in Weight 184 lb 4 oz BMI 26.4 BP 122/70 Blood Pressure Location Lt brachial Position Sitting Respiration 12 Pulse 73 Pulse Source Pulse Oximeter Temp 97.5 F Temp Source Oral Pulse Oximetry (%) 97 Oxygen Delivery Method Room Air Intake Visit Reasons: body pain Intake Note: Patient c/o chest px and muscle spasm all over body Nurse Recruiter Required: No Allergies No Known Allergies Allergy (Verified 09/13/24 14:03) Medication List - Last Reconciled 09/13/24 by PEEWEE Modi- gabapentin 300 mg PO BEDTIME 30 days hyoscyamine sulfate 0.25 mg (2 x 0.125 mg) PO TID PRN Tobacco use date assessed: 09/13/24 Dental Screening Dental Screen Date: 09/13/24 Did you have a dental visit in the last 12 months?: Yes Did you have a dental problem in the last 6 months where you did not have access to dental care?: No Was dental information given to patient?: Patient has dentist HPI HPI Comments 2 History of Present Illness0 Details History of Present Illness - The patient is a 28 year old male pres enting with chronic complaints of generalized pain and related symptoms. - He describes chronic unexplainable smith n, resistant to multiple treatment attempts. - Experienced shoulder surgery with no c hange or improvement in his overall sx. - Reports history of frequent ER visits that have since been minimized, describes intermittent, severe chest pain, and widespread muscle spasms affecting various areas. - Has not attended previously recommende d neuromuscular consultation due to previously mentioned personal reasons and travel. - Complains of episodes of dizziness and lightheadedness; attributes back pain to nerve impingement extending to his leg and toe. - Despite significant life changes focus ed on diet, exercise, and health improvement, symptoms persist. - Temporary symptom relief noted with al cohol, despite trials of anxiety medication without evidence of anxiety disorder. - Described exacerbation of symptoms due to certain body positions, particularly when lying on his back or left side. Physical Exam General: Well developed, well nourished, in no acute distress. Appears stated age. Head: Normocephalic, atraumatic. Reports muscle spasms, especially in the temporal area, specifically on the left side. Eyes: Pupils are equal, round and reactive to light and accommodation. Conjunctivae are clear. Vision grossly normal. Lungs: Clear to auscultation bilaterally. No rales, rhonchi or wheeze noted. Good air flow in all thompson. Heart: Regular rate and rhythm. No murmurs, click, rubs or gallops are noted. Abdomen: Bowel sounds present in all quadrants. The abdomen is soft, nontender, with no masses or organomegaly noted. No hernias are noted. Musculoskeletal: Joints are nontender, without swelling, redness, or effusions. Reports generalized pain and muscle spasms throughout the body. Pulses: Peripheral pulses are equal and palpable bilaterally. Extremities: No clubbing, cyanosis nor edema is noted. Reports sensation of pulse in the back extending down the leg to the big toe. Psych: Mood and affect appropriate. Reports feeling lightheaded or dizzy at times, but denies mood-related issues. Discussion Notes During the visit, I discussed the complexity of the patient's symptoms, emphasizing the importance of persisting with the recommendation for a neuromuscular consultation to explore underlying neuropathological processes further. 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 I explained how pursuing this avenue of testing could unveil previously unexplored causes of his symptoms. The necessity of contacting Dr. Jorgito Benedict for specialized evaluation was reiterated. No conclusions were drawn regarding blood work or imaging due to the ongoing symptomatology and negative findings to date. The necessity of further evaluation and the potential for obtaining new insights from specific diagnostics and specialists was emphasized. The patient was advised to prioritize follow-up appointments and comply with diagnostic testing. Assessment and Plan 1. Generalized Pain Generalized pain remains a central issue without a definitive cause, necessitating an evaluation by a neuromuscular specialist and toxicological screenings due to potential work-related exposure. 2. Muscle Spasms Muscle spasms warrant further investigation in correlation with potential nerve- related conditions and require the neuromuscular specialist's input. 3. Lightheadedness/Dizziness Monitoring of episodic lightheadedness and dizziness, possible reevaluation if symptoms persist, noting lifestyle adjustments. 4. Chest Pain Chest pain remains despite negative cardiac investigations, reinforcing the need to consider non-cardiac etiologies through neuromuscular examination. 5. Peripheral PArasthesias Potential neuropathic presentation anticipates comprehensive evaluation through specialist referral and subsequent diagnostic tools. Patient Instructions - Schedule an appointment with Dr. Jorgito Benedict, neuromuscular specialist. - Complete blood tests for carbon monoxi de and lead exposure. - Follow lifestyle modifications and florecita ntain a symptom diary. - Obtain future blood tests at recommend ed facilities for timely processing. - Return to clinic if symptoms worsen or for further concerns. Consent Patient was informed and verbally consented to the use of an ambient scribe for clinic note documentation during this visit. Total time spent caring for the patient today was 30 minutes. This includes time spent before the visit reviewing the chart, time spent during the visit, and time spent after the visit on documentation, reviewing laboratory results, diagnostic imaging, medications, performing a medically necessary evaluation, counseling on diagnoses, care coordination, ordering appropriate tests, ordering appropriate medications, review of tests performed by other providers, reporting test results with the patient, communication with other healthcare providers. [facility] Family History (Updated 04/03/24 @ 09:19 by Charu Solitario CMA) Father Asthma Brother Asthma Sister Asthma Social History (Updated 04/03/24 @ 09:20 by Charu Solitario CMA) Housing: House Are you a primary client care consultant to a significant other at home: No Do you presently have visiting nurse or other home services: No Alcohol intake: current Alcohol intake frequency: holidays/special occasions only Patient Tobacco Use Status: Never used Tobacco e-Cigarette/Vaping Use: Currently Using Second Hand Smoke Exposure: No Substance Use Type: Former Substance User and Marijuana service: No Current occupational status: employed Current occupation: [employer] , 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 1. Little interest or pleasure in doing things: several days 2. Feeling down, depressed, or hopeless: not at all 3. Trouble falling or staying asleep, or sleeping too much: not at all 4. Feeling tired or having little energy: several days 5. Poor appetite or overeating: not at all 6. Feeling bad about yourself - or that you are a failure or have let yourself or your family down: not at all 7. Trouble concentrating on things, such as reading the newspaper or watching television: several days 8. Moving or speaking so slowly that other people could have noticed. Or the opposite - being so fidgety or restless that you have been moving around a lot more than usual: not at all 9. Thoughts that you would be better off or of hurting yourself in some way: not at all Total score: 3 Depression Screening Interpretation: Negative Depression Screening Done: Yes 58847 - PHQ-9 Billing: Yes Source: Developed by Drs. Carlos Baum, Nohemy Montalvo, Hal Savage and colleagues, with an educational alden from [employer]. Thrive Questionnaire Date Thrive assessed: 09/13/24 I am a: Patient What is your living situation today?: I have a steady place to live Within the past 12 months, did the food you bought not last and you didn't have the money to get more?: Never true Within the past 12 months, did you worry whether your food would run out before you got money to buy more?: Never true Do you have trouble paying for medicines?: No Do you have trouble getting transportation to medical appointments?: No Do you have trouble paying your heating and electricity bill?: No Do you have trouble taking care of your child, family member or friend?: No Do you have trouble with day-to-day activities such as bathing, preparing meals, shopping, managing finances, etc.?: No Are you currently unemployed and looking for a job?: No Are you interested in more education?: No Please select the resources that you would like help with: None Currently or been in a relationship where the following occur: No concerns reported THRIVE Score: 0 AUDIT C Alcohol Use Questionnaire (AUDIT-C) 1. How often do you have a drink containing alcohol?: 2-4 times a month 2. How many drinks containing alcohol do you have on a typical day when you are drinking?: 1 or 2 3. How often do you have six or more drinks on one occasion?: Never Total Score: 2 Score Reviewed/Action Taken: Yes SARAH-7 AMB Questionnaire SARAH-7 Date SARAH - 7 assessed: 09/13/24 Feeling nervous, anxious, or on edge: 0 = Not at all Not being able to stop or control worryin = Not at all Worrying too much about different things: 0 = Not at all Trouble relaxin = Not at all Being so restless that it is hard to sit still: 0 = Not at all Becoming easily annoyed or irritable: 0 = Not at all Feeling afraid as if something awful might happen: 0 = Not at all Total SARAH-7 score (0-4 normal; 5-9 mild; 10-14 moderate; 15-21 severe): 0 Source: Developed by Drs. Carlos Baum, Nohemy Montalvo, Hal Savage and colleagues, with an educational alden from [employer]. SARAH-7 Assessment Billing SARAH-7 Assessment Tool: SARAH-7 Assessment 44226 Physical exam (Primary Care) Vital Signs: Last Vital Signs Temp 97.5 F 09/13/24 13:17 Pulse 73 09/13/24 13:17 Resp 12 09/13/24 13:17 BP 122/70 09/13/24 13:17 Pulse Ox 97 09/13/24 13:17 Oxygen Delivery Method Room Air 09/13/24 13:17 BMI result Body Mass Index 26.4 Tobacco/Smoking Status: Tobacco use Status Tobacco use date assessed 09/13/24 09/13/24 13:18 Patient Tobacco Use Status Never used Tobacco 09/13/24 13:18 e-Cigarette/Vaping Use Currently Using 09/13/24 13:18 PHQ-9: PHQ-9 Score PHQ-9: Total score 3 09/13/24 15:42 Depression Screening Interpretation: Negative Thrive Assessment: Date of Thrive Assessment Date Thrive assessed 09/13/24 09/13/24 13:18 Currently or been in a relationship where the following occur: No concerns reported Results Reviewed Results Reviewed: RUN: 09/13/24 [address] [facility] [address] [place] [id number] Bull Driver: Elder Zamora M.D. Specimen Inquiry L Name: Paul Bolton Age/Sex: 28/M : 1995 Unit#: [id number] Attend Dr: Dayanna Yi SUPERVISOR PLASMA-BC Re09/13/24 Status: REG REF Location: [facility] isch: SPEC : [id number] JOSE: 09/13/24 STATUS: COMP REQ : [id number] RECD: 09/13/[address]: Dayanna Yi SUPERVISOR PLASMA- COMP: 09/13/24 ENTERED: 09/13/[address] [facility] [address]: ORDERED: CO POC Test Result Flag Reference Carbon Monoxide 1.0 % CARBON MONOXIDE REFERENCE RANGE: NON SMOKERS: LESS THAN 2.0% SMOKERS: 2.0 - 9.0% Note: Therapeutic levels of Hydroxocobalamin (1 mg/mL and 2 mg/mL) may interfere with carboxyhemoglobin causing lower than expected values. A negative interference with carboxyhemoglobin has the potential to alter the medical assessment of the patient and may withhold necessary follow-up treatment in response to elevated carboxyhemoglobin levels. Coding Level of Care Code Est Pt Level 4 (79263) Complex EM visit Add On G2211 Diagnoses Paresthesia of left arm R20.2 Left leg paresthesias R20.2 Complaint of paresthesia R20.2 Costochondral chest pain R07.89 Additional Codes SARAH-7 Assessment Billing - SARAH-7 Assessment Tool: SARAH-7 Assessment 82100 ([id number]) PHQ-9 - 30627 - PHQ-9 Billing: Yes ([id number]) Assessment & Plan Assessment & Plan (1) Paresthesia of left arm: Code(s): R20.2 - Paresthesia of skin Category: Medical (2) Left leg paresthesias: Code(s): R20.2 - Paresthesia of skin Category: Medical (3) Complaint of paresthesia: Code(s): R20.2 - Paresthesia of skin Category: Medical (4) Costochondral chest pain: Code(s): R07.89 - Other chest pain Category: Medical Plan . Orders: Orders 2 Lead and Zinc Protoporyphyrin Today R20.2 - Paresthesia of skin, Z77.098 - Contact with and (suspected) exposure to other hazardous, chiefly nonmedicinal, chemicals Medications: Discontinued 2 hyoscyamine sulfate Discontinued Reason: Patient Completed Course 0.25 mg (2 x 0.125 mg) PO TID PRN 12 tabs 0RF abdominal pain gabapentin Discontinued Reason: Patient no longer taking 300 mg PO BEDTIME 30 days 30 caps 0RF pain M54.9 - Dorsalgia, unspecified, R20.2 - Paresthesia of skin
[2024-09-13 13:17] VITALS: BP 122/70; PULSE 73; RESP 12; TEMP 36.4; O2SAT 97; BMI 26.4
== END 2024-09-13 14:52 | disposition home or self-care (01) ==
LOC: HO.HMCFM 13:10
PROVIDERS: PCP Internal Medicine; Visit Provider Nurse Practitioner Family
DX: R20.2 Paresthesia of skin (principal); R07.89 Other chest pain

== ENCOUNTER 2025-02-27 09:45 | Outpatient (AMB) | payer SELFPAY ==
--- NOTE | 2025-02-27 09:47 | MHC.PC.OV ---
Vital Signs 02/27/25 09:51 Height 5 ft 10 in Weight 181 lb 6 oz BMI 26.0 BP 118/70 Blood Pressure Location Lt brachial Position Sitting Respiration 12 Pulse 75 Pulse Source Pulse Oximeter Temp 97.1 F Temp Source Oral Pulse Oximetry (%) 98 Oxygen Delivery Method Room Air Intake Visit Reasons: chest discomfort, dizziness (self pay) Intake Note: Patient c/o chest px consistent, chest discomfort, and dizziness. Infrastructure Manager Required: No Allergies No Known Allergies Allergy (Verified 02/27/25 10:04) Medication List - Last Reconciled 02/27/25 by PEEWEE Modi- No Known Home Meds Tobacco use date assessed: 02/27/25 Dental Screening Dental Screen Date: 02/27/25 Did you have a dental visit in the last 12 months?: Yes Did you have a dental problem in the last 6 months where you did not have access to dental care?: No Was dental information given to patient?: Patient has dentist HPI HPI Comments History of Present Illness Details Here today for ongoing sx that have been present for about 2 years Cont w/ chest pain, daily since Jan 10 with unremarkable and extensive cards workup Muscle spasms/fasiculations are better Did consult w/ neuromuscular medicine in [place], visit x 4. Reports no real big help. I requested these notes Intermittent dizziness, without know trigger. Lying down helps. No syncope Has parasthesia in BLE, L >R Met w/ pain mgmt after MRI of L and C Spine. told DJD and nothing else he is frustrated and eager to find answers. Pre-DM HX w last a1c 5.9%; today 5.1% Physical Exam General: Well developed, well nourished, in no acute distress. Appears stated age. Head: Normocephalic, atraumatic. Reports muscle spasms, especially in the temporal area, specifically on the left side. Eyes: Pupils are equal, round and reactive to light and accommodation. Conjunctivae are clear. Vision grossly normal. Lungs: Clear to auscultation bilaterally. No rales, rhonchi or wheeze noted. Good air flow in all thompson. Heart: Regular rate and rhythm. No murmurs, click, rubs or gallops are noted. Abdomen: Bowel sounds present in all quadrants. The abdomen is soft, nontender, with no masses or organomegaly noted. No hernias are noted. Musculoskeletal: Joints are nontender, without swelling, redness, or effusions. Reports generalized pain and muscle spasms throughout the body. Pulses: Peripheral pulses are equal and palpable bilaterally. Extremities: No clubbing, cyanosis nor edema is noted. Reports sensation of pulse in the back extending down the leg to the big toe. Psych: Mood and affect appropriate. Reports feeling lightheaded or dizzy at times, but denies mood-related issues. Assessment and Plan 1. Generalized Pain Generalized pain remains a central issue without a definitive cause, evaluation by a neuromuscular specialist done, negative toxicological screenings due to potential work-related exposure. 2. Muscle Spasms resolved 3. Lightheadedness/Dizziness episodic lightheadedness and dizziness, [facility] 4. Chest Pain Chest pain remains despite negative cardiac investigations, reinforcing the need to consider non-cardiac etiologies through neuromuscular examination. 5. Peripheral PArasthesias Check EMG/NCV Total time spent caring for the patient today was 40 minutes. This includes time spent before the visit reviewing the chart, time spent during the visit, and time spent after the visit on documentation, reviewing laboratory results, diagnostic imaging, medications, performing a medically necessary evaluation, counseling on diagnoses, care coordination, ordering appropriate tests, ordering appropriate medications, review of tests performed by other providers, reporting test results with the patient, communication with other healthcare providers. [facility] Family History (Updated 04/03/24 @ 09:19 by Charu Solitario CMA) Father Asthma Brother Asthma Sister Asthma Social History (Updated 04/03/24 @ 09:20 by Charu Solitario CMA) Housing: House Are you a primary manager medicare to a significant other at home: No Do you presently have visiting nurse or other home services: No Alcohol intake: current Alcohol intake frequency: holidays/special occasions only Patient Tobacco Use Status: Never used Tobacco e-Cigarette/Vaping Use: Currently Using Second Hand Smoke Exposure: No Substance Use Type: Former Substance User and Marijuana service: No Current occupational status: employed Current occupation: [employer] , 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) Cognitive needs: No Hearing needs: No Vision needs: No Questionnaire Thrive Questionnaire Date Thrive assessed: 09/13/24 I am a: Patient What is your living situation today?: I have a steady place to live Within the past 12 months, did the food you bought not last and you didn't have the money to get more?: Never true Within the past 12 months, did you worry whether your food would run out before you got money to buy more?: Never true Do you have trouble paying for medicines?: No Do you have trouble getting transportation to medical appointments?: No Do you have trouble paying your heating and electricity bill?: No Do you have trouble taking care of your child, family member or friend?: No Do you have trouble with day-to-day activities such as bathing, preparing meals, shopping, managing finances, etc.?: No Are you currently unemployed and looking for a job?: No Are you interested in more education?: No Please select the resources that you would like help with: None Currently or been in a relationship where the following occur: No concerns reported THRIVE Score: 0 SARAH-7 AMB Questionnaire SARAH-7 Date SARAH - 7 assessed: 09/13/24 Source: Developed by Drs. Carlos Baum, Nohemy Montalvo, Hal Savage and colleagues, with an educational alden from [employer]. Physical exam (Primary Care) Vital Signs: Last Vital Signs Temp 97.1 F 02/27/25 09:51 Pulse 75 02/27/25 09:51 Resp 12 02/27/25 09:51 BP 118/70 02/27/25 09:51 Pulse Ox 98 02/27/25 09:51 Oxygen Delivery Method Room Air 02/27/25 09:51 BMI result Body Mass Index 26.0 Tobacco/Smoking Status: Tobacco use Status Tobacco use date assessed 02/27/25 02/27/25 09:52 Patient Tobacco Use Status Never used Tobacco 02/27/25 09:52 e-Cigarette/Vaping Use Currently Using 02/27/25 09:52 Thrive Assessment: Date of Thrive Assessment Date Thrive assessed 09/13/24 02/27/25 09:52 Currently or been in a relationship where the following occur: No concerns reported Results AMB Hemoglobin A1c AMB Hemoglobin A1c 5.1 % Last Edit by Kt Honeycutt MA on 02/27/25 10:25 Coding Level of Care Code Est Pt Level 5 (88365) Complex EM visit Add On G2211 Diagnoses Left leg paresthesias R20.2 Complaint of paresthesia R20.2 Prediabetes R73.03 Dizziness R42 Costochondral chest pain R07.89 Assessment & Plan Assessment & Plan (1) Left leg paresthesias: Code(s): R20.2 - Paresthesia of skin Category: Medical (2) Complaint of paresthesia: Code(s): R20.2 - Paresthesia of skin Category: Medical (3) Prediabetes: Comment: a1c 5.9% 04/03/24 5.1% 02/27/25 Code(s): R73.03 - Prediabetes Category: Medical (4) Dizziness: Code(s): R42 - Dizziness and giddiness Category: Medical (5) Costochondral chest pain: Code(s): R07.89 - Other chest pain Category: Medical Plan . Orders: Orders NE nerve conduction velocity Today R20.2 - Paresthesia of skin AMB Hemoglobin A1c Today R73.03 - Prediabetes, Z13.9 - Encounter for screening, unspecified NE electromyogram (EMG) Today R20.2 - Paresthesia of skin Referrals Neurology Referral R20.2 - Paresthesia of skin, R42 - Dizziness and giddiness
[2025-02-27 09:51] VITALS: BP 118/70; PULSE 75; RESP 12; TEMP 36.2; O2SAT 98; BMI 26.0
== END 2025-02-27 10:35 | disposition home or self-care (01) ==
LOC: HO.HMCFM 09:45
PROVIDERS: PCP Nurse Practitioner Family; Visit Provider Nurse Practitioner Family
DX: R20.2 Paresthesia of skin (principal); R73.03 Prediabetes; R42 Dizziness and giddiness; R07.89 Other chest pain

== ENCOUNTER → 2025-02-27 09:45 | Outpatient (BNVA) | payer SELFPAY | PROVIDERS: PCP Nurse Practitioner Family; Visit Provider Nurse Practitioner Family | DX: R73.03 Prediabetes (principal); R20.2 Paresthesia of skin; R42 Dizziness and giddiness; R07.89 Other chest pain | CPT/HCPCS: 83036; 99212 ==

== ENCOUNTER 2025-04-01 08:59 | Outpatient (REF) | payer SELFPAY ==
--- NOTE | 2025-04-01 09:01 | EMG_ITS ---
Chief complaint: Numbness in bilateral leg Left > right Reason for referral: R20.2 Paresthesia of skin Referred by: PEEWEE Wagner Procedure done: NCS and EMG of bilateral lower extremities Bilateral peroneal and tibial motor studies were performed with F responses. Tibial H reflexes were obtained. Bilateral superficial peroneal and sural sensory studies were performed . Needle examination was performed Findings: Left peroneal amplitude was slightly diminished with bilateral mild slowing of peroneal nerve across the knee. Bilateral superficial peroneal amplitudes were severely diminished with mild slowing of conduction velocity on the left and moderate on the right. 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 This might be early signs of metabolic type peripheral neuropathy. Codin 44549 x2 MTDD
== END 2025-04-01 09:00 | disposition home or self-care (01) ==
LOC: HO.NEURO 08:59
PROVIDERS: PCP Nurse Practitioner Family; Visit Provider Nurse Practitioner Family
DX: R20.2 Paresthesia of skin (principal)
CPT/HCPCS: 95886; 95911

== ENCOUNTER → 2025-04-01 09:01 | Outpatient (BNV) | payer SELFPAY | PROVIDERS: PCP Nurse Practitioner Family; Visit Provider Psychiatry & Neurology Neurology | DX: G57.93 Unspecified mononeuropathy of bilateral lower limbs (principal) | CPT/HCPCS: 95886; 95911 ==

== ENCOUNTER 2025-05-01 12:49 | Outpatient (AMB) | payer SELFPAY ==
--- NOTE | 2025-05-01 12:59 | A.PHYSOV_ITS ---
Vital Signs 05/01/25 13:00 Height 5 ft 10 in Weight 181 lb BMI 26.0 Intake Visit Reasons: selfpay $600 [facility] [place] Ref-paresthesia of skin Intake Note: Patient is a 29 year old male here for a new patient office visit. Patient is being referred today for paresthesia of bilateral lower extremities. 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 He reports symptoms began about a year and a half ago after he felt a pop in his chest while smoking marijuana and thought he was having a heart attack. He experiences generalized tingling, primarily in both legs and occasionally in his arms, which he notes radiates down the front of his legs to his big toe. He is unable to lie on his back due to a throbbing sensation and consistently sleeps on his side. He has also had recent onset of right-sided lower back pain. An MRI from February 2024 revealed disc bulges at L2-L3, L3-L4, L4-L5, and L5-S1, with the L5-S1 disc encroaching on nerve roots. An EMG study showed evidence of nerve irritation, reportedly worse on the right side, but he has not yet received the formal results from his primary care physician. He has used topical Icy Hot patches and a heating pad for his pain but has not had physical therapy and does not typically take oral pain relievers. He has a history of chronic chest pain, which has been consistent for the last month and a half and began approximately a year and a half ago. This prompted approximately 20 visits to the emergency department, where cardiac causes were ruled out via EKG and other tests. He has been evaluated by a printed circuit board assembly repairer, who confirmed his heart is fine, and has had a CT scan of his chest and an echocardiogram. Past medical history includes prediabetes which has since resolved. He denies a history of cancer or chemotherapy. He drinks alcohol on the weekends and occasionally has wine during the week. He is currently without health insurance. Pain Description - Quality: Patient reports tingling, throbbing, warmth, and tightness. - Location and Radiation: He experiences tingling all over but mainly in the legs, radiating down the front to the big toe. - He reports recent back pain, primarily on the right side. - He has chronic chest pain which feels warm and tight, sometimes felt on the left side in the rib area. - Exacerbating Factors: Lying on his back causes a throbbing sensation. - Relieving Factors: Patient uses Icy Hot patches and a heating pad for pain. Results - Imaging: - MRI Lumbar Spine (February 2024): Showed disc bulges at L2-3, L3-4, L4-5, and a bulge at L5-S1 that is encroaching on the nerve roots. - CT Chest: Previously performed, with findings that presumably ruled out acute life-threatening conditions. - Tests and Diagnostics: - EMG: Showed evidence of peripheral nerve irritation, worse on the right side. - EKG/Echocardiogram: Multiple prior EKGs and an echo were performed as part of a cardiac workup, which was unremarkable. - Labs: - History of prediabetes, which has since normalized. [facility] Surgical History (Updated 05/01/25 @ 13:02 by Qi Lund MA) H/O shoulder surgery Family History (Updated 04/03/24 @ 09:19 by Charu Solitario CMA) Father Asthma Brother Asthma Sister Asthma Social History (Updated 04/03/24 @ 09:20 by Charu Solitario CMA) Housing: House Are you a primary care partner to a significant other at home: No Do you presently have visiting nurse or other home services: No Alcohol intake: current Alcohol intake frequency: holidays/special occasions only Patient Tobacco Use Status: Never used Tobacco e-Cigarette/Vaping Use: Currently Using Second Hand Smoke Exposure: No Substance Use Type: Former Substance User and Marijuana service: No Current occupational status: employed Current occupation: [employer] , 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 - Reports a throbbing sensation when lying on his back. - Musculoskeletal: Reports recent onset of right-sided low back pain. - Cardiovascular: Reports chronic, intermittent chest pain described as warm and tight. - Respiratory: Reports occasional trouble breathing, associated with left-sided rib area discomfort. - Psychological: Denies feeling nervous. Physical Exam Exam Exam: Physical Exam - Back: On palpation of the lower back, a tingling sensation was elicited without pain. - Range of motion was non-painful with forward flexion and backward extension. - Neurological: Motor strength was 5/5 in the lower extremities, including ankle dorsiflexion/plantarflexion, knee extension, and hip flexion bilaterally. - Sensation to light touch was symmetric in both legs. Negative straight leg raise. Vital Signs: BMI result Body Mass Index 26.0 Assessment & Plan Assessment & Plan (1) Lumbar radiculopathy: Code(s): M54.16 - Radiculopathy, lumbar region Category: Medical (2) Neuropathy: Code(s): G62.9 - Polyneuropathy, unspecified Category: Medical Plan Pain Management - Affect: The patient reports the uncertainty of his diagnosis has been driving me insane, and while he can live with the tingling, the chest pain is his main concern. - Analgesia: He does not take oral pain medication and primarily uses topical treatments like Icy Hot patches and a heating pad. - Activities of Daily Living: His symptoms prevent him from lying on his back. - Aberrant Drug Related Behaviors: None noted; the patient declined an offer for gabapentin, stating he is good with pain. Plan Patient was informed and verbally consented to the use of an ambient scribe for clinic note documentation during this visit. 1. Low Back Pain And Paresthesia The patient's symptoms of low back pain and tingling in the legs are likely related to his MRI findings of a lumbar disc bulge, particularly at L5-S1, encroaching on the nerve roots. However, EMG findings also suggest a component of peripheral neuropathy that may be contributing. A conservative approach will be initiated with a referral for physical therapy. The patient was encouraged to resume exercise but to avoid activities with high spinal loading, like deadlift s. A trial of gabapentin was offered for symptomatic relief but declined by the patient. Epidural steroid injections were discussed as a future diagnostic and therapeutic option if physical therapy is not effective, to be considered after his insurance is active. 2. Chest Pain The patient has chronic chest pain, which is his most bothersome symptom. Extensive prior workups in the ER and by a printed circuit board assembly repairer have effectively ruled out life-threatening cardiac and pulmonary etiologies. Further workup for a musculoskeletal cause, such as a cervical spine MRI to evaluate for a disc bulge, will be deferred until the patient obtains health insurance to avoid prohibitive costs. 3. Peripheral Neuropathy EMG results indicate the presence of her prolonged distal onset latency as well as decreased conduction velocity, which may be contributing to his symptoms. The etiology is unclear, and it was recommended that the patient follow up with a neurologist for further evaluation. Discussion Notes I explained to the patient that his MRI shows lumbar disc bulges, particularly at L5-S1, which are likely contributing to his leg symptoms. I also reviewed his EMG results, which suggest a separate issue of peripheral nerve irritation, and recommended he see a neurologist for further assessment. We discussed that his symptoms and findings are not life-threatening. Given that he currently lacks health insurance, I advised a conservative approach to avoid high costs. I ordered physical therapy as a first-line treatment for his back. We discussed that epidural steroid injections are an option if PT fails, which we can pursue once he is insured. I offered gabapentin for symptomatic relief of his tingling, but he declined at this time. I encouraged him to return to a workout routine, advising him to avoid exercises that load the spine like heavy squats and deadlifts. Regarding his chest pain, I reassured him that prior evaluations make a serious cardiac or pulmonary cause unlikely and suggested we could investigate musculoskeletal causes once he has insurance. The patient was agreeable to this plan and will start with PT and follow up in the new year. Patient Instructions - I have ordered physical therapy for your back and leg symptoms. - Please note you will have to pay for this [id number] until your health insurance becomes active in May. - I encourage you to begin exercising again. - Start slowly and be careful to avoid exercises that put heavy weight on your back, such as deadlifts or barbell squats. - Based on your previous tests, your symptoms are not considered to be life- threatening. - Consider seeing a neurologist (category specialist) to further investigate the tingling in your limbs, as it may be related to a nerve issue separate from your back. - Follow up here once your health insurance is active. - At that time, we can discuss further options like injections for your back or more tests for your chest pain if symptoms have not improved. Orders: Orders PT Evaluation and Treatment Today G62.9 - Polyneuropathy, unspecified, M54.16 - Radiculopathy, lumbar region Coding Level of Care Code Tele New Pt Level 2 (05971) Diagnoses Lumbar radiculopathy M54.16 Neuropathy G62.9
[2025-05-01 13:00] VITALS: BMI 26.0
== END 2025-05-01 14:20 | disposition home or self-care (01) ==
LOC: HO.HPHYS 12:50
PROVIDERS: PCP Nurse Practitioner Family; Visit Provider Physician Assistant
DX: M54.16 Radiculopathy, lumbar region (principal); G62.9 Polyneuropathy, unspecified
CPT/HCPCS: 99203

== ENCOUNTER → 2025-05-01 12:49 | Outpatient (BNVA) | payer SELFPAY | PROVIDERS: PCP Nurse Practitioner Family; Visit Provider Physician Assistant | DX: M54.16 Radiculopathy, lumbar region (principal); G62.9 Polyneuropathy, unspecified; R20.2 Paresthesia of skin; R07.9 Chest pain, unspecified; M54.50 Low back pain, unspecified | CPT/HCPCS: 99202 ==